=== PATIENT | male | born 1950 | race Caucasian/White ===

== ENCOUNTER 2018-03-11 06:35 | Day surgery (SDC) | payer MEDICARE, OTHER, SELFPAY ==
[2018-03-11] VITALS (8 sets, daily range): BP systolic 106–116; BP diastolic 72–81; PULSE 68–92; RESP 11–18; TEMP 36.4–36.6; O2SAT 83–100; BMI 25.4
--- NOTE | 2018-03-11 | PATH_ITS ---
[facility] Accession Number: [id number] . 01 Material submitted: . BX GE JUNCTION . 02 Diagnosis: Gastroesophageal Junction, Biopsy: Squamocolumnar junctional mucosa with ulcer. Negative for specialized intestinal metaplasia on alcian blue stain. Negative for fungal organisms on PAS stain. Negative for dysplasia or malignancy. V/03/13/2018 . 02 Electronically signed: . Diony Hunter MD, PhD, Pathologist NPI- [id number] . 01 Gross description: . Received one formalin-filled container labeled with the patient's name and labeled GE junction are multiple less than 0.1 to 0.3 cm portions of tissue. Entirely submitted in one cassette. ([facility] [place] [place]:[id number]) /[facility] . 02 Microscopic: . An alcian blue/PAS stain is performed to evaluate for specialized intestinal metaplasia and is negative for goblet cells. A control stain shows appropriate reactivity. There is no evidence of fungal organisms on PAS stain. . 02 Pathologist provided ICD-10: K20.9 . 02 CPT . 968919, [id number] Performed at: 01 [facility] [address], [place], [place] [id number] MD Hardeep Nuñez MD Phone: [phone] Performed at: 02 [facility] [address] [place], [place] [id number] MD Jonatan Vieyra MD Phone: [phone]
--- NOTE | 2018-03-11 08:05 | PM.HP.1 ---
History of Present Illness Date Patient Seen: 03/11/18 Time Patient Seen: 07:50 Chief complaint: EGD [id number] Narrative: Patient is a gentleman with dysphagia of solids here for an EGD. He has chronic reflux disease. Patient History Medical History Dysphagia (Acute) GERD (gastroesophageal reflux disease) (Chronic) Blindness of left eye (Chronic) Depression (Chronic) Elevated cholesterol (Chronic) Surgical History History of enucleation of left eyeball (Resolved) History of vasectomy (Resolved) Family & Social History Family History: Reviewed 03/11/18 by Ricardo Walsh MD Tobacco & Substance use: Smoking Status Never smoker Meds Home Medications Medication Instructions Recorded Confirmed Type citalopram 40 mg PO DAILY 02/05/18 03/11/18 History omeprazole 20 mg capsule,delayed 20 mg PO DAILY 02/05/18 03/11/18 History release atorvastatin 10 mg PO DAILY 03/11/18 03/11/18 History Allergies Allergy/AdvReac Type Severity Reaction Status Date / Time No Known Drug Allergies Allergy Verified 03/11/18 06:58 Review of Systems Review of Systems All systems reviewed & are unremarkable except as noted in HPI and below Exam Vital Signs (past 8 hours): - 03/11/18 07:01 Temperature 97.8 F Pulse Rate 78 Respiratory Rate 18 Blood Pressure 114/72 Pulse Oximetry 97 Oxygen Delivery Method Room Air Narrative Exam Narrative: Operative no apparent distress. Obese. Lungs are clear to auscultation without rales or rhonchi. Heart regular rate and rhythm without murmur gallop. Abdomen is soft nontender without mass patient is alert and oriented x3. Assessment & Plan Plan: Assessment/Plan Narrative: Will proceed to EGD and possible dilatation. I have discussed the procedure with him. Risks of bleeding and perforation discussed. He appears to understand wishes to proceed
--- NOTE | 2018-03-11 08:07 | PM.PREOP ---
Pre-operative Note Interval Note Pre-op Check: Yes History & Physical exam performed today by Physician Changes: No ASA Class (for procedural sedation): II
[2018-03-11] MEDS: MIDAZOLAM 5 MG/5 ML VIAL IV (08:16)
[2018-03-11] MEDS: fentaNYL 250 MCG/5 ML INJ IV (08:18)
[2018-03-11] MEDS: LIDOCAINE 4% SOLN 50 ML 20 ML TOP (08:22)
[2018-03-11] MEDS: TETRACAINE/BENZOCAINE/BUTAMBEN (CETACAINE) BOTTLE 1 SPRAY TOP (08:24)
--- NOTE | 2018-03-11 08:35 | PM.OP.ENDO ---
Operative Date/Time/Diagnoses Date of procedure: 03/11/18 Time of procedure: 08:35 Pre-op diagnosis: Dysphagia Post-op diagnosis: same (Schatzki ring. Inflammation with healing ulceration at the GE junction.) Procedure & Clinicians Study performed: EGD with cold biopsy and balloon dilatation to 15 mm diameter Same procedure as scheduled: Yes Indications: Dysphagia Surgeon: Ricardo Walsh Procedure Notes SCOAP/Timeout: Performed Procedure in detail: The patient had topical anesthetic applied to oropharynx. She was placed in left lateral decubitus position and underwent IV sedation directed by the surgeon consisting of fentanyl and Versed. A bite block was inserted and the scope was advanced through it into the esophagus. The esophagus was unremarkable. GE junction was noted at 38 cm from the incisors. There was marked inflammation and an obvious stricture/Schatzki ring with scarring at the GE junction. There was a 3 cm hiatal hernia. The stomach insufflated well. There were no lesions seen in the body, antrum or at the incisura. The pyloric channel was [patent]. The duodenum was unremarkable to the 4th part. The scope was brought back into the stomach and retroflexed. The proximal stomach[was normal in appearance except for the presence of the hiatal hernia seen well from below]. The scope was straightened and brought out through the esophagus again. Multiple biopsies were taken of the area of the distal esophagus. A balloon dilator was passed through the scope. The area of stricture was larger than 12 mm but at 15 mm diameter we dilated this stricture. The scope was removed and the patient tolerated the procedure well. 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
[2018-03-11] MEDS: SODIUM CHLORIDE 0.9% 1,000 ML 100 ML IV (08:47)
--- NOTE | 2018-03-11 08:55 | SUR.PREOP ---
Margaret grossman started iv.
--- NOTE | 2018-03-11 08:56 | SUR.PHASEI ---
Patient tolerates po water with HOB at 90 degrees.
== END 2018-03-11 09:40 | disposition home or self-care (01) ==
PROVIDERS: Visit Provider Specialist
PROC: 0DJ08ZZ Inspection of Upper Intestinal Tract, Via Natural or Artificial Opening Endoscopic (ICD-10-PCS; CPT 43235; principal; 2018-03-11 07:45)
DX: K20.9 Esophagitis, unspecified (principal); K22.2 Esophageal obstruction; K44.9 Diaphragmatic hernia without obstruction or gangrene; K22.70 Barrett's esophagus without dysplasia; K21.9 Gastro-esophageal reflux disease without esophagitis; E78.5 Hyperlipidemia, unspecified; E66.9 Obesity, unspecified
CPT/HCPCS: 43249; 43239; 88305; 88313; 99152; J2250; J3010

== ENCOUNTER 2018-06-17 06:43 | Day surgery (SDC) | payer MEDICARE, OTHER, SELFPAY ==
--- NOTE | 2018-06-17 | PATH_ITS ---
[facility] Accession Number: [id number] . 01 Material submitted: . ANTRUM BIOPSIES . 02 Diagnosis: Stomach, Antrum, Biopsies: Antral mucosa with focal reactive epithelial changes and changes suggestive of acute erosive gastritis. Negative for Helicobacter by immunohistochemistry. Negative for intestinal metaplasia. Negative for dysplasia and malignancy. V/06/19/2018 . 02 Electronically signed: . Sonam Batista MD, Pathologist NPI- [id number] . 01 Gross description: . Received one formalin-filled container labeled with the patient's name and labeled antrum are two 0.2 to 0.3 cm portions of tissue. Entirely submitted in one cassette. ([facility] [place]:[id number]) /[facility] . 02 Microscopic: . An immunohistochemical stain was performed in order to evaluate for Helicobacter organisms and is negative. The control stain showed appropriate reactivity. Additional deeper levels were examined. . * This test was developed and its performance characteristics determined by [facility]. It has not been cleared or approved by the U.S. Food and Drug Administration. The FDA has determined that such clearance or approval is not necessary. This test is used for clinical purposes. It should not be regarded as investigational or for research. . 02 Pathologist provided ICD-10: R10.9 . 02 CPT . 572511, [id number] Performed at: 01 [facility] [address] [facility], [place], [place] [id number] MD Hardeep Nuñez MD Phone: [phone] Performed at: 02 [facility] [address] [place], [place] [id number] MD Sonam Batista MD Phone: [phone]
[2018-06-17 07:06] VITALS: BP 115/73; PULSE 70; RESP 16; TEMP 36.5; O2SAT 97; BMI 26.1
[2018-06-17] MEDS: SODIUM CHLORIDE 0.9% 1,000 ML 200 ML IV (07:45)
[2018-06-17] MEDS: LIDOCAINE 4% SOLN 50 ML 20 ML TOP (08:30)
--- NOTE | 2018-06-17 08:31 | PM.HP.1 ---
History of Present Illness Date Patient Seen: 06/17/18 Time Patient Seen: 08:31 Chief complaint: egd [id number] Narrative: Patient is a gentleman who had an esophageal ulcer and stricture. He has improvement in swallowing but still has a little bit of dysphagia. He is brought back for repeat EGD to make sure the ulcer is healed and to see if he needs redilated Patient History Medical History Dysphagia (Acute) GERD (gastroesophageal reflux disease) (Chronic) Blindness of left eye (Chronic) Depression (Chronic) Elevated cholesterol (Chronic) Surgical History History of enucleation of left eyeball (Resolved) History of vasectomy (Resolved) Family & Social History Family History: Reviewed 06/17/18 by Ricardo Walsh MD Social History: household members spouse Tobacco & Substance use: Smoking Status Never smoker Meds Home Medications Medication Instructions Recorded Confirmed Type citalopram 40 mg PO DAILY 02/05/18 06/17/18 History atorvastatin 10 mg PO DAILY 03/11/18 06/17/18 History omeprazole 20 mg PO BID 06/17/18 06/17/18 History Allergies Allergy/AdvReac Type Severity Reaction Status Date / Time No Known Drug Allergies Allergy Verified 06/17/18 07:07 Exam Vital Signs (past 8 hours): - 06/17/18 07:06 Temperature 97.7 F Pulse Rate 70 Respiratory Rate 16 Blood Pressure 115/73 Pulse Oximetry 97 Oxygen Delivery Method Room Air Narrative Exam Narrative: Operative obese male in no apparent distress. Lungs are clear to auscultation. No rales or rhonchi heart regular rate and rhythm no murmur or gallop abdomen soft protuberant nontender without mass patient is alert and oriented x3 Assessment & Plan Plan: Assessment/Plan Narrative: Patient for an EGD. I have discussed risks of bleeding and perforation with him. He appears to understand wishes to proceed. Desires a 90 day supply of medication with each prescription due to problems he has getting it filled.
--- NOTE | 2018-06-17 08:33 | PM.PREOP ---
Pre-operative Note Interval Note Pre-op Check: Yes History & Physical exam performed today by Physician Changes: No ASA Class (for procedural sedation): II
[2018-06-17] MEDS: TETRACAINE/BENZOCAINE/BUTAMBEN (CETACAINE) BOTTLE 1 SPRAY TOP (08:40)
[2018-06-17] MEDS: fentaNYL 250 MCG/5 ML INJ IV (08:53)
[2018-06-17] MEDS: MIDAZOLAM 5 MG/5 ML VIAL IV (08:54)
[2018-06-17 09:00] VITALS: BP 108/75; PULSE 72; RESP 20; TEMP 36.6; O2SAT 97
--- NOTE | 2018-06-17 09:03 | PM.OP.ENDO ---
Operative Date/Time/Diagnoses Date of procedure: 06/17/18 Time of procedure: 09:03 Pre-op diagnosis: Esophageal ulcer with stricture history of Post-op diagnosis: same (Ulcer has healed. Schatzki ring. Large hiatal hernia. Gastritis.) Procedure & Clinicians Study performed: EGD with cold biopsy Same procedure as scheduled: Yes Indications: Continued dysphagia. Desire to confirm healing of ulcer. Surgeon: Ricardo Walsh Procedure Notes SCOAP/Timeout: Performed Procedure in detail: The patient had topical anesthetic applied to oropharynx. She was placed in left lateral decubitus position and underwent IV sedation directed by the surgeon consisting of fentanyl and Versed. A bite block was inserted and the scope was advanced through it into the esophagus. The esophagus was unremarkable until I reached the distal esophagus. There was a sharp turn into what appeared to be a dilated shafts washburn ring followed by a 2nd quite large ring and hiatal hernia. The mucosa from the hiatal hernia actually impinged on the lumen of the esophagus in part. There was scarring were apparently the ulcer had been. The 2 rings appeared to be fixed but were widely open. The stomach insufflated well. There were no lesions seen in the body, or at the incisura. There was inflammation however the antrum. The pyloric channel was widely patent and the duodenum was unremarkable of 4th part. The scope was brought back into the stomach and retroflexed. The proximal stomach had a few gastric fundic polyps. The hiatal hernia could be seen from below.. The scope was straightened and brought out through the esophagus again. The hernia measured about 5-6 cm. There did not appear to be a large amount of stomach in it however. No other lesions were seen. The scope was removed and the patient tolerated the procedure well. Scope withdrawal time: Not applicable Sedation minutes: 11 Findings: gastritis (Principal leave the gastric antrum), hiatal hernia, stricture (Widely patent Schatzki ring) and other findings Specimen(s): other (Antral biopsies) Complications: none Recommendations: Continue medication(s) Plan for aftercare: Follow-up with primary care physician's. follow-up with me when dysphagia worsens Disposition: PACU
[2018-06-17 09:05] VITALS: BP 106/75; PULSE 73; RESP 13; TEMP 36.5; O2SAT 97
[2018-06-17 09:10] VITALS: BP 120/80; PULSE 90; RESP 14; TEMP 36.4; O2SAT 98
[2018-06-17 09:13] VITALS: BP 110/77; PULSE 90; RESP 14; TEMP 36.4; O2SAT 94
== END 2018-06-17 09:25 | disposition home or self-care (01) ==
PROVIDERS: PCP Family Medicine; Visit Provider Specialist
PROC: 0DJ08ZZ Inspection of Upper Intestinal Tract, Via Natural or Artificial Opening Endoscopic (ICD-10-PCS; CPT 43235; principal; 2018-06-17 07:45)
DX: K22.2 Esophageal obstruction (principal); K29.70 Gastritis, unspecified, without bleeding; K44.9 Diaphragmatic hernia without obstruction or gangrene; R13.10 Dysphagia, unspecified; E78.00 Pure hypercholesterolemia, unspecified; F33.41 Major depressive disorder, recurrent, in partial remission
CPT/HCPCS: 43239; 88305; 88342; 99152; J2250; J3010

== ENCOUNTER → 2019-09-23 09:43 | Outpatient (CLI) | payer MEDICARE, OTHER, SELFPAY ==
--- NOTE | 2019-09-23 | DI.US.S_ITS ---
PROCEDURE: US ABDOMEN COMPLETE INDICATIONS: NONALCOHOLIC STEATOHEPATITIS (GRIMM) TECHNIQUE: Real-time scanning was performed of the abdominal and retroperitoneal organs, with image documentation. COMPARISON: None. FINDINGS: Liver: Liver is normal in size and homogeneous in echotexture, mildly increased in echotexture consistent with mild hepatic steatosis. Gallbladder: The gallbladder appears normal except for presence of layering calculi, small in size approximately 5-6 mm in diameter. Biliary ducts: Intrahepatic bile ducts are non-dilated. Extrahepatic bile duct caliber measures 4.0 mm. Normal is 6-7 mm or less in diameter, or 10 mm or less post-cholecystectomy. Pancreas: Visualized portions of the pancreas are sonographically normal. Spleen: Spleen is normal in size and homogeneous in echotexture. Kidneys: Kidneys are normal in size and echotexture. Right kidney measures 10.2 cm long; left kidney measures 11.1 cm long. No hydronephrosis or nephrolithiasis. No solid masses. There is a 3.2 cm maximal dimension left renal cortical cyst. Aorta: Visualized aorta is normal in caliber at less than 3 cm. Iliacs: Proximal common iliac arteries are normal in caliber at less than 2.5 cm. IVC: Intrahepatic inferior vena cava is patent. Miscellaneous: No free abdominal fluid. IMPRESSION: Gallstones layering within the gallbladder lumen, without evidence of biliary obstruction or acute cholecystitis. Mild fatty infiltration within the liver. No focal liver lesion found. Dictated by: José Miguel Marti M.D. on 09/23/2019 at 12:39 Approved by: José Miguel Marti M.D. on 09/23/2019 at 12:42
== END ==
PROVIDERS: PCP Family Medicine; Referring Provider Family Medicine; Visit Provider Family Medicine
DX: K75.81 Nonalcoholic steatohepatitis (NASH) (principal); K80.20 Calculus of gallbladder without cholecystitis without obstruction
CPT/HCPCS: 76700

== ENCOUNTER → 2023-12-04 13:34 | Outpatient (CLI) | payer MEDICARE, SELFPAY ==
--- NOTE | 2023-12-04 13:37 | DI.RAD.S_ITS ---
PROCEDURE: XR LUMBAR SPINE 2-3V INDICATIONS: Ghulam Carmona TECHNIQUE: 3 views of the lumbar spine were acquired. COMPARISON: None. FINDINGS: Bones: 5 [id number] vertebrae are present. Mild dextrocurvature of the lumbar spine. Minimal retrolisthesis of L1 on L2. Minimal anterolisthesis of L3 on L4. There is multilevel facet arthropathy, worse at L4-5 and L5-S1. Mild multilevel disc height loss with degenerative endplate changes and spurring is present. This is most severe at L5-S1. No vertebral body compression fractures. No suspicious bony lesions. Soft tissues: Overlying bowel gas pattern is normal. No suspicious soft tissue calcifications. Atherosclerotic vascular calcifications. IMPRESSION: Multilevel degenerative changes of the lumbar spine. Dictated by: Eddie Andrews M.D. on 12/04/2023 at 15:39 Approved by: Eddie Andrews M.D. on 12/04/2023 at 15:40
== END ==
PROVIDERS: PCP Family Medicine; Referring Provider Chiropractor; Visit Provider Chiropractor
DX: M47.816 Spondylosis without myelopathy or radiculopathy, lumbar region (principal); M47.817 Spondylosis without myelopathy or radiculopathy, lumbosacral region; M54.50 Low back pain, unspecified
CPT/HCPCS: 72100

== ENCOUNTER 2024-07-10 10:45 | Outpatient (RCR) | payer MEDICARE, SELFPAY ==
--- NOTE | 2024-05-29 15:58 | PT.OIE ---
Current Diagnoses Other chronic pain (05/29/24) Stiffness of left hip, not elsewhere classified (05/29/24) Low back pain, unspecified (05/29/24) Other abnormalities of gait and mobility (05/29/24) Other lack of coordination (05/29/24) Other symptoms and signs involving the musculoskeletal system (05/29/24) Weakness (05/29/24) Past Medical History (Last Reviewed 03/22/22 @ 12:37 by ADONIS Berry) Blindness of left eye Depression Dysphagia Elevated cholesterol GERD (gastroesophageal reflux disease) Past Surgical History (Last Reviewed 03/22/22 @ 12:37 by ADONIS Berry) History of enucleation of left eyeball History of vasectomy Visit Care Team Role Provider Type Sunday Garcia MD Attending Provider Physician Family Provider Primary Care Provider Referring Provider Specialty: Family Practice Address: [address] [place] [address], [facility] Email: [email or web address] Initial Evaluation PT-OP-A Visit Information Start: 05/28/24 17:03 Freq: Status: Active Protocol: Document 05/29/24 11:25 NM (Rec: 05/29/24 12:27 NM [id number]) Out-Patient Physical Therapy Visit Information Visit Information Visit Type Initial Evaluation Visit Note KX after 19 visits Visit Start Time 11:30 Visit Stop Time 12:15 Visit Number 1 Evaluation Information Evaluation Date 05/29/24 Precautions Precautions L eye removed, fall risk PT-OP-B Current Condition Start: 05/28/24 17:03 Freq: Status: Active Protocol: Document 05/29/24 11:25 NM (Rec: 05/29/24 12:27 NM [id number]) Current Condition History of Current Condition Current Complaints limited hip mobility, balance, getting History of Current Condition Pt presents with back pain and L hip pain, in addition to gait and balance abnormalities . He has had back pain for 15 years, does not recall any specific ROMÁN. 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 He also has L hip pain whihch began 3-4 months ago following a fall. Pt fell when jumping over a small wall; states that he did not follow up with PCP or xrays. Still has intermittent pain but reports no pain with walking. Went to chiropractor following fall which has helped. Has been going to chiropractor for years to help with back. Chiro told pt that RLE is shorter, has wedge in R shoe 1/2 which is causing hip pain and reports that has helped pain. Pt has hx of several falls. He reports that he feels off balance with transfers, being on boat, and turning- states has to catch himself. He has stairs in house (split level), missing rail on last flight going up ( R going up- not a real rail). No dizziness or lightheadedness, just unable to catch self once he starts to fall. Reports difficulty with transfers, strength, balance, donning/doffing L shoe/sock. Has hx of sciatic pain but not currently, last episode was 8 years ago; back is just more achy now especially after performing strenuous activities or twisting such as to work on his boat. Prior Treatments and Tests November 2024 lumbar spine x ray- Impression: multilevel degenerative changes of lumbar spine (mild dextrocurvature, minimal retrolisthesis of L1 on L2, minimal anterolisthesis on L3 on L4, multilevel facet arthropathy worse at L4-5 and L5-S1) Treatment Goals Patient/Caregiver Goals how to improve BLE strength and have fewer falls Current Functional Impairments (Reported) Functional Limitations- Mobility/Gait walks every day w/ do mi- unsteady Functional Limitations- Work/School reading, watching videos Functional Limitations- Recreation/ works on boat, has trouble Hobbies with twisting gym a few weeks every month, has pool membership PT-OP-C Subjective Start: 05/28/24 17:03 Freq: Status: Active Protocol: Document 05/29/24 11:25 NM (Rec: 05/29/24 12:27 NM [id number]) OP-PT Subjective Patient Comments Patient Comments Pt consents to participate in evaluation Patient Questionnaires Lower Extremity Functional Scale LEFS Score 52/80 Oswestry Low Back Index Oswestry Score 16/100 (16% impaired) Other Questionnaire Name and Score Falls Efficacy Scale: 38/64 OP-PT Pain Assessment Location L hip Pain Location Details lateral hip Scale Used Numeric (0 - 10) Description Aching,Dull,Sharp Frequency Intermittent Pain Aggravating Factors Position Other Pain Aggravating Factors hip ER with leg crossed back Pain Location Details middle Intensity 3 Scale Used Numeric (0 - 10) Description Aching,Dull Description- Other best: 1 Frequency Occasional Variations/Patterns worse am after strenuous Pain Aggravating Factors ADL's,Activity,Standing, Bending Other Pain Aggravating Factors twisting Pain Alleviating Factors Medication PT-OP-D Balance Start: 05/28/24 17:03 Freq: Status: Active Protocol: Document 05/29/24 11:25 NM (Rec: 05/29/24 12:27 NM [id number]) Balance Tests Prieto Balance Test Prieto Balance Test Score 46/56 mCTSIB mCTSIB Position 1 stable, eyes open 30 sec mCTSIB Position 2 stable, eyes closed 25 sec mCTSIB Position 3 unstable, eyes open 30 sec w/ sway mCTSIB Position 4 unstable, eyes closed 10 sec w / inc sway PT-OP-E Functional Tests Start: 05/28/24 17:03 Freq: Status: Active Protocol: Document 05/29/24 11:25 NM (Rec: 05/29/24 12:27 NM [id number]) Functional Tests 30 Second Sit to Stand Test Score 14 Comments from chair; fatigues; dec control Dynamic Gait Index (DGI) Score 18/24 Five Times Sit to Stand Test Score 9 Comments from chair; poor ecc control PT-OP-F Manual Assessment Start: 05/28/24 17:03 Freq: Status: Active Protocol: Document 05/29/24 11:25 NM (Rec: 05/29/24 12:27 NM [id number]) Manual Assessments Soft Tissue Assessment Soft Tissue Mobility Assessment Tightness of hip ER and hip flexors, hamstrings Joint Mobility Assessment Joint Mobility Assessment Decreased L hip mobility AROM; will continue to assess in future sessions PT-OP-G Mobility & Gait Start: 05/28/24 17:03 Freq: Status: Active Protocol: Document 05/29/24 11:25 NM (Rec: 05/29/24 12:27 NM [id number]) OP Gait Assessment Gait Distance (Feet) 200 Factors Limiting Gait Function Factors Limiting Gait Function Decreased Strength,Poor Balance Comments Gait Comments Increased sway with L turn, decreased trunk stability and wider based gait PT-OP-H Neuro Start: 05/28/24 17:03 Freq: Status: Active Protocol: Document 05/29/24 11:25 NM (Rec: 05/29/24 12:27 NM [id number]) Deep Tendon Reflex & Clonus Assessment Deep Tendon Reflex Right Patellar Deep Tendon Reflex 1+ Diminished Left Patellar Deep Tendon Reflex 2+ Normal PT-OP-J Posture/Palpation/Skin Start: 05/28/24 17:03 Freq: Status: Active Protocol: Document 05/29/24 11:25 NM (Rec: 05/29/24 12:27 NM [id number]) Palpation Assessment Location L hip Palpation Details mild tenderness over L hip posterior to greater trochanter back Palpation Details No tenderness to palpation along midline; increased soft tissue restrictions of paraspinals especially on R side small curve at thoracic and lumbar spines R PT-OP-K Range of Motion Start: 05/28/24 17:03 Freq: Status: Active Protocol: Document 05/29/24 11:25 NM (Rec: 05/29/24 12:27 NM [id number]) Lumbar Spine Range of Motion Lumbar Spine Active Percentage Flexion 50 Extension 50 Rotation Left 100 Rotation Right 100 Lateral Flexion Left 75 Lateral Flexion Right 50 Comments pain with R LF w/ L hip; B rot Hip Goniometric Range of Motion Hip right Internal Rotation 20 External Rotation 35 left Internal Rotation 25 External Rotation 25 Comments IR PT-OP-L Special Tests Start: 05/28/24 17:03 Freq: Status: Active Protocol: Document 05/29/24 11:25 NM (Rec: 05/29/24 12:27 NM [id number]) Special Tests Lumbar Spine Special Tests Brandon/quadrant Test Results + Comments hips PT-OP-M Strength Start: 05/28/24 17:03 Freq: Status: Active Protocol: Document 05/29/24 11:25 NM (Rec: 05/29/24 12:27 NM [id number]) Trunk Strength Trunk Manual Muscle Testing Flexion 3+ Fair+ Extension 3+ Fair+ Rotation Left 4 Good Rotation Right 4 Good Lateral Flexion Left 4 Good Lateral Flexion Right 4 Good Comments challenging to maintain balance Hip Strength Hip Manual Muscle Testing Right Flexion (L2) 4 Good Extension (S1) 4- Good- Abduction 3+ Fair+ Adduction 4- Good- External Rotation 3+ Fair+ Internal Rotation 3+ Fair+ Left Flexion (L2) 4 Good Extension (S1) 3+ Fair+ Abduction 3+ Fair+ Adduction 4- Good- External Rotation 3+ Fair+ Internal Rotation 3+ Fair+ Knee Strength Knee Manual Muscle Testing Right Flexion (S2) 4- Good- Extension (L3) 4- Good- Left Flexion (S2) 4- Good- Extension (L3) 4- Good- PT-OP-T Assessment and Plan Start: 05/28/24 17:03 Freq: Status: Active Protocol: Document 05/29/24 11:25 NM (Rec: 05/29/24 12:27 NM [id number]) Physical Therapy Assessment Rehab Potential Rehabilitation Potential Good Evaluation Complexity Number of Personal Factors/Comorbidities 3 or More Number of Body Systems Impaired 3 Clinical Presentation at Evaluation Stable Impairments Impairments Activity Tolerance,Balance, Functional Activities, Functional Mobility,Gait,Pain, Posture,ROM,Sensation,Soft Tissue Mobility,Strength, Transfers Other Concerns Fall Risk increased Age Related Concerns PMH: back pain, depression, left eye removed in 1957 Goals Four Impairment 30 sec STS = 14, below age- gender norms [employer] Goal (LTG) Pt will be able to perform 30 sec STS from standard chair without BUE support for age- gender norm (17) in order to demonstrate increased BLE strength and postural support for improved transfers LTG Duration 10 weeks Three Impairment DGI 18/24, Prieto 46/56 Short Term Goal (STG) Pt will be educated on at least 3 fall risk strategies to decrease frequency of falls at home STG Duration 3 weeks [employer] Goal (LTG) Pt will improve DGI score >19/ 24 (WFL) in order to demonstrate lower fall risk during dynamic tasks like working on boat LTG Duration 10 weeks Two Impairment trunk and hip weakness leading to decreased balance, transfers [employer] Developer Goal (LTG) Pt will improve trunk and L hip strength to at least 4/5 globally in order to demonstrate increased strength for gait, balance, and transfers LTG Duration 10 weeks One Impairment not performing HEP [employer] Goal (LTG) Pt will report compliance with HEP at least 3x/wk in order to maximize progression with PT and promote transition to maintenance program upon discharge LTG Duration 10 weeks Assessment Summary Assessment Pt is a 73 y.o. presenting with chronic back pain, L hip pain, and balance abnormalities. Pt is most concerned about his balance. He has had several falls and near falls, including most recent fall 3-4 months ago where pt injured L hip. He has increased risk of falls in static and dynamic instances per Prieto and DGI scores. Pt has difficulty with transfers; he fatigues quickly and his 30 sec STS score is below age- gender norms while his 5x STS is below age-related norms. His BLE and trunk strength are both limited in addition to decreased trunk AROM, which also likely influences back pain symptoms. Pt has had imaging revealing multilevel degeneration and scoliosis; however, he is pain is variable and mostly related to activity. PT educated pt on exam findings and plan of care . Pt would benefit from skilled PT for progressive strengthening and balance training in order to reduce fall risk, promote independence, and improve ability to participate in recreational activities. Physical Therapy Plan Frequency and Duration Frequency of Treatment 2x/Week Duration of treatment (weeks) 10 Plan of Care Start Date 05/29/24 Plan of Care End Date 08/07/23 Therapeutic Interventions Therapeutic Interventions Balance Training,Gait Training ,Home Exercise Program,Joint Mobilizations,Manual Therapy, Neuromuscular Re-education, Orthotic/Prosthetic Management ,Patient/Caregiver Education, Self-Care/Home Management, Sensory Integration,Soft Tissue Mobilization,Taping, Therapeutic Activities, Therapeutic Exercises Modalities Cold Pack/Ice Massage,Electric Stimulation,Hot Packs, Ultrasound Other Therapeutic Interventions grade I-II lumbar mobilizations, no traction Next Visit Focus/Plan Next Note Type Treatment Note Next Visit Plan Establish HEP Promote BLE strength and endurance: STS, LAQ, leg press , hip abduction, heel raises, toe raises, step ups Improve TS and LS mobility and strength: carries, squats, picking up objects Balance sherri dynamic and fall risk reduction
--- NOTE | 2024-06-02 12:56 | PT.OTN ---
Current Diagnoses Other chronic pain (06/02/24) Stiffness of left hip, not elsewhere classified (06/02/24) Low back pain, unspecified (06/02/24) Other abnormalities of gait and mobility (06/02/24) Other lack of coordination (06/02/24) Other symptoms and signs involving the musculoskeletal system (06/02/24) Weakness (06/02/24) Physical Therapy Treatment Note PT-OP-A Visit Information Start: 05/28/24 17:03 Freq: Status: Active Protocol: Document 06/02/24 11:28 NM (Rec: 06/02/24 12:24 NM [id number]) Out-Patient Physical Therapy Visit Information Visit Information Visit Type Treatment Note Visit Note KX after 19 visits Visit Start Time 11:30 Visit Stop Time 12:12 Visit Number 2 Evaluation Information Evaluation Date 05/29/24 Precautions Precautions L eye removed, fall risk PT-OP-B Current Condition Start: 05/28/24 17:03 Freq: Status: Active Protocol: Document 05/29/24 11:25 NM (Rec: 05/29/24 12:27 NM [id number]) Current Condition History of Current Condition Current Complaints limited hip mobility, balance, getting History of Current Condition Pt presents with back pain and L hip pain, in addition to gait and balance abnormalities . He has had back pain for 15 years, does not recall any specific ROMÁN. 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 He also has L hip pain whihch began 3-4 months ago following a fall. Pt fell when jumping over a small wall; states that he did not follow up with PCP or xrays. Still has intermittent pain but reports no pain with walking. Went to chiropractor following fall which has helped. Has been going to chiropractor for years to help with back. Chiro told pt that RLE is shorter, has wedge in R shoe 1/2 which is causing hip pain and reports that has helped pain. Pt has hx of several falls. He reports that he feels off balance with transfers, being on boat, and turning- states has to catch himself. He has stairs in house (split level), missing rail on last flight going up ( R going up- not a real rail). No dizziness or lightheadedness, just unable to catch self once he starts to fall. Reports difficulty with transfers, strength, balance, donning/doffing L shoe/sock. Has hx of sciatic pain but not currently, last episode was 8 years ago; back is just more achy now especially after performing strenuous activities or twisting such as to work on his boat. Prior Treatments and Tests November 2024 lumbar spine x ray- Impression: multilevel degenerative changes of lumbar spine (mild dextrocurvature, minimal retrolisthesis of L1 on L2, minimal anterolisthesis on L3 on L4, multilevel facet arthropathy worse at L4-5 and L5-S1) Treatment Goals Patient/Caregiver Goals how to improve BLE strength and have fewer falls Current Functional Impairments (Reported) Functional Limitations- Mobility/Gait walks every day w/ do mi- unsteady Functional Limitations- Work/School reading, watching videos Functional Limitations- Recreation/ works on boat, has trouble Hobbies with twisting gym a few weeks every month, has pool membership PT-OP-C Subjective Start: 05/28/24 17:03 Freq: Status: Active Protocol: Document 06/02/24 11:28 NM (Rec: 06/02/24 12:24 NM [id number]) OP-PT Subjective Patient Comments Patient Comments Pt reports no pain in low back since last visit. He reports that evaluation was very thorough. No changes since evaluation. He reports that he has caught himself from fall a few times, falling forward, when coming to stand from low couch and then with turning/ stopping. PT-OP-D Balance Start: 05/28/24 17:03 Freq: Status: Active Protocol: Document 05/29/24 11:25 NM (Rec: 05/29/24 12:27 NM [id number]) Balance Tests Prieto Balance Test Prieto Balance Test Score 46/56 mCTSIB mCTSIB Position 1 stable, eyes open 30 sec mCTSIB Position 2 stable, eyes closed 25 sec mCTSIB Position 3 unstable, eyes open 30 sec w/ sway mCTSIB Position 4 unstable, eyes closed 10 sec w / inc sway PT-OP-E Functional Tests Start: 05/28/24 17:03 Freq: Status: Active Protocol: Document 05/29/24 11:25 NM (Rec: 05/29/24 12:27 NM [id number]) Functional Tests 30 Second Sit to Stand Test Score 14 Comments from chair; fatigues; dec control Dynamic Gait Index (DGI) Score 18/24 Five Times Sit to Stand Test Score 9 Comments from chair; poor ecc control PT-OP-F Manual Assessment Start: 05/28/24 17:03 Freq: Status: Active Protocol: Document 05/29/24 11:25 NM (Rec: 05/29/24 12:27 NM [id number]) Manual Assessments Soft Tissue Assessment Soft Tissue Mobility Assessment Tightness of hip ER and hip flexors, hamstrings Joint Mobility Assessment Joint Mobility Assessment Decreased L hip mobility AROM; will continue to assess in future sessions PT-OP-G Mobility & Gait Start: 05/28/24 17:03 Freq: Status: Active Protocol: Document 05/29/24 11:25 NM (Rec: 05/29/24 12:27 NM [id number]) OP Gait Assessment Gait Distance (Feet) 200 Factors Limiting Gait Function Factors Limiting Gait Function Decreased Strength,Poor Balance Comments Gait Comments Increased sway with L turn, decreased trunk stability and wider based gait PT-OP-H Neuro Start: 05/28/24 17:03 Freq: Status: Active Protocol: Document 05/29/24 11:25 NM (Rec: 05/29/24 12:27 NM [id number]) Deep Tendon Reflex & Clonus Assessment Deep Tendon Reflex Right Patellar Deep Tendon Reflex 1+ Diminished Left Patellar Deep Tendon Reflex 2+ Normal PT-OP-J Posture/Palpation/Skin Start: 05/28/24 17:03 Freq: Status: Active Protocol: Document 05/29/24 11:25 NM (Rec: 05/29/24 12:27 NM [id number]) Palpation Assessment Location L hip Palpation Details mild tenderness over L hip posterior to greater trochanter back Palpation Details No tenderness to palpation along midline; increased soft tissue restrictions of paraspinals especially on R side small curve at thoracic and lumbar spines R PT-OP-K Range of Motion Start: 05/28/24 17:03 Freq: Status: Active Protocol: Document 05/29/24 11:25 NM (Rec: 05/29/24 12:27 NM [id number]) Lumbar Spine Range of Motion Lumbar Spine Active Percentage Flexion 50 Extension 50 Rotation Left 100 Rotation Right 100 Lateral Flexion Left 75 Lateral Flexion Right 50 Comments pain with R LF w/ L hip; B rot Hip Goniometric Range of Motion Hip right Internal Rotation 20 External Rotation 35 left Internal Rotation 25 External Rotation 25 Comments IR PT-OP-L Special Tests Start: 05/28/24 17:03 Freq: Status: Active Protocol: Document 05/29/24 11:25 NM (Rec: 05/29/24 12:27 NM [id number]) Special Tests Lumbar Spine Special Tests Brandon/quadrant Test Results + Comments hips PT-OP-M Strength Start: 05/28/24 17:03 Freq: Status: Active Protocol: Document 05/29/24 11:25 NM (Rec: 05/29/24 12:27 NM [id number]) Trunk Strength Trunk Manual Muscle Testing Flexion 3+ Fair+ Extension 3+ Fair+ Rotation Left 4 Good Rotation Right 4 Good Lateral Flexion Left 4 Good Lateral Flexion Right 4 Good Comments challenging to maintain balance Hip Strength Hip Manual Muscle Testing Right Flexion (L2) 4 Good Extension (S1) 4- Good- Abduction 3+ Fair+ Adduction 4- Good- External Rotation 3+ Fair+ Internal Rotation 3+ Fair+ Left Flexion (L2) 4 Good Extension (S1) 3+ Fair+ Abduction 3+ Fair+ Adduction 4- Good- External Rotation 3+ Fair+ Internal Rotation 3+ Fair+ Knee Strength Knee Manual Muscle Testing Right Flexion (S2) 4- Good- Extension (L3) 4- Good- Left Flexion (S2) 4- Good- Extension (L3) 4- Good- PT-OP-Q Treatments Start: 05/28/24 17:03 Freq: Status: Active Protocol: Document 06/02/24 11:28 NM (Rec: 06/02/24 12:24 NM [id number]) Therapeutic Exercises Supine Exercises HS mobilization/nerve glide Side bilateral Equipment Used gait belt assist Reps/Minutes 30 ea Comments limited TKE TrA activation Supine Exercise Name 1. breathing, 2. BKFO, 3. marching (HEP) Side bilateral Reps/Minutes 1.10x2, 2. 10 ea w/ verbal/ tactile cues, 3. 10 ea Comments with cueing for breathwork, coord., control sherri eccentrically Sitting Exercises seated HS stretch Sitting Exercise Name with AP (HEP) Side bilateral Equipment Used with slight fwd trunk lean Reps/Minutes 60 ea Comments cued nuetral foot position LAQ Sitting Exercise Name HEP Side bilateral Resistance AROM > levl 1 band at ankles ( self don) Reps/Minutes 10 w/ 2 hold, 15 w/ band ea Comments feels more in HS even after stretch hip abduction Sitting Exercise Name HEP- 1. glute med isometric, 2 . clams Side bilateral Resistance level 3 band Reps/Minutes 1. 60 hold, 2. 2x10 Therapeutic Activity Therapeutic Activity sit to stand Name with hip hinge Reps/Minutes 8 minutes Comments Education for rationale and set up for position. Cueing for forward scooting in chair, foot positioning and knee positioning to prevent valgus, ant weight shift with arms across chest to avoid UE assist. Improved ascent w/ reps, prn cues for form. Cued primarily for control w/ descent, 20 plinth. CGA initially > close SBA as improved PT-OP-T Assessment and Plan Start: 05/28/24 17:03 Freq: Status: Active Protocol: Document 06/02/24 11:28 NM (Rec: 06/02/24 12:24 NM [id number]) Physical Therapy Assessment Goals Four Impairment 30 sec STS = 14, below age- gender norms Geophysics Teacher Goal (LTG) Pt will be able to perform 30 sec STS from standard chair without BUE support for age- gender norm (17) in order to demonstrate increased BLE strength and postural support for improved transfers LTG Duration 10 weeks Three Impairment DGI 18/24, Prieto 46/56 Short Term Goal (STG) Pt will be educated on at least 3 fall risk strategies to decrease frequency of falls at home STG Duration 3 weeks Fpc Goal (LTG) Pt will improve DGI score >19/ 24 (WFL) in order to demonstrate lower fall risk during dynamic tasks like working on boat LTG Duration 10 weeks Two Impairment trunk and hip weakness leading to decreased balance, transfers Fpc Goal (LTG) Pt will improve trunk and L hip strength to at least 4/5 globally in order to demonstrate increased strength for gait, balance, and transfers LTG Duration 10 weeks One Impairment not performing HEP Geophysics Teacher Goal (LTG) Pt will report compliance with HEP at least 3x/wk in order to maximize progression with PT and promote transition to maintenance program upon discharge LTG Duration 10 weeks Assessment Summary Assessment Pt tolerated session well. No back or hip pain during session. Emphasis on improving STS mechanics and initiating proximal strength to promote better balance and trunk stability. Challenged with performing coordination with core bracing, especially when paired with movement. Improved with tactile and verbal cueing. Pt has increased restrictions of B hamstrings, which limits posture during transfers. Good feedback for hamstring stretching in preparation for STS transfer training and BLE strengthening . Moderate cueing for STS, but improved ascent with less initial sway compared to evaluation last week. Less assist for balance needed as session progresses. Still requires cueing for anterior weight shift and eccentric control. Pt would benefit from skilled PT for progressive strengthening and balance training to decrease fall risk and improve safety during transfers and ADLs. Physical Therapy Plan Frequency and Duration Frequency of Treatment 2x/Week Duration of treatment (weeks) 10 Plan of Care Start Date 05/29/24 Plan of Care End Date 08/07/23 Therapeutic Interventions Therapeutic Interventions Balance Training,Gait Training ,Home Exercise Program,Joint Mobilizations,Manual Therapy, Neuromuscular Re-education, Orthotic/Prosthetic Management ,Patient/Caregiver Education, Self-Care/Home Management, Sensory Integration,Soft Tissue Mobilization,Taping, Therapeutic Activities, Therapeutic Exercises Modalities Cold Pack/Ice Massage,Electric Stimulation,Hot Packs, Ultrasound Other Therapeutic Interventions grade I-II lumbar mobilizations, no traction Next Visit Focus/Plan Next Note Type Treatment Note Next Visit Plan Review HEP. STS training ( reduce ht, add band if needed) . cont with seated and standing core. Progressive BLE strength and balance training (sherri turns and picking up objects) Promote BLE strength and endurance: STS, LAQ, leg press , hip abduction, heel raises, toe raises, step ups Improve TS and LS mobility and strength: carries, squats, picking up objects Balance sherri dynamic and fall risk reduction
--- NOTE | 2024-06-04 12:22 | PT.OTN ---
Current Diagnoses Other chronic pain (06/04/24) Stiffness of left hip, not elsewhere classified (06/04/24) Low back pain, unspecified (06/04/24) Other abnormalities of gait and mobility (06/04/24) Other lack of coordination (06/04/24) Other symptoms and signs involving the musculoskeletal system (06/04/24) Weakness (06/04/24) Physical Therapy Treatment Note PT-OP-A Visit Information Start: 05/28/24 17:03 Freq: Status: Active Protocol: Document 06/04/24 11:36 SP (Rec: 06/04/24 12:30 SP [id number]) Out-Patient Physical Therapy Visit Information Visit Information Visit Type Treatment Note Visit Note KX after 19 visits Visit Start Time 11:36 Visit Stop Time 12:22 Visit Number 3 (09/28 with eval) Number of WATERPROOF BAG SEWER Visits 1 Evaluation Information Evaluation Date 05/29/24 Precautions Precautions L eye removed, fall risk PT-OP-B Current Condition Start: 05/28/24 17:03 Freq: Status: Active Protocol: Document 05/29/24 11:25 NM (Rec: 05/29/24 12:27 NM [id number]) Current Condition History of Current Condition Current Complaints limited hip mobility, balance, getting History of Current Condition Pt presents with back pain and L hip pain, in addition to gait and balance abnormalities . He has had back pain for 15 years, does not recall any specific ROMÁN. 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 He also has L hip pain whihch began 3-4 months ago following a fall. Pt fell when jumping over a small wall; states that he did not follow up with PCP or xrays. Still has intermittent pain but reports no pain with walking. Went to chiropractor following fall which has helped. Has been going to chiropractor for years to help with back. Chiro told pt that RLE is shorter, has wedge in R shoe 1/2 which is causing hip pain and reports that has helped pain. Pt has hx of several falls. He reports that he feels off balance with transfers, being on boat, and turning- states has to catch himself. He has stairs in house (split level), missing rail on last flight going up ( R going up- not a real rail). No dizziness or lightheadedness, just unable to catch self once he starts to fall. Reports difficulty with transfers, strength, balance, donning/doffing L shoe/sock. Has hx of sciatic pain but not currently, last episode was 8 years ago; back is just more achy now especially after performing strenuous activities or twisting such as to work on his boat. Prior Treatments and Tests November 2024 lumbar spine x ray- Impression: multilevel degenerative changes of lumbar spine (mild dextrocurvature, minimal retrolisthesis of L1 on L2, minimal anterolisthesis on L3 on L4, multilevel facet arthropathy worse at L4-5 and L5-S1) Treatment Goals Patient/Caregiver Goals how to improve BLE strength and have fewer falls Current Functional Impairments (Reported) Functional Limitations- Mobility/Gait walks every day w/ do mi- unsteady Functional Limitations- Work/School reading, watching videos Functional Limitations- Recreation/ works on boat, has trouble Hobbies with twisting gym a few weeks every month, has pool membership PT-OP-C Subjective Start: 05/28/24 17:03 Freq: Status: Active Protocol: Document 06/04/24 11:36 SP (Rec: 06/04/24 12:30 SP [id number]) OP-PT Subjective Patient Comments Patient Comments Pt reports little sore inquad after last tx and less balanced today. PT-OP-D Balance Start: 05/28/24 17:03 Freq: Status: Active Protocol: Document 05/29/24 11:25 NM (Rec: 05/29/24 12:27 NM [id number]) Balance Tests Prieto Balance Test Prieto Balance Test Score 46/56 mCTSIB mCTSIB Position 1 stable, eyes open 30 sec mCTSIB Position 2 stable, eyes closed 25 sec mCTSIB Position 3 unstable, eyes open 30 sec w/ sway mCTSIB Position 4 unstable, eyes closed 10 sec w / inc sway PT-OP-E Functional Tests Start: 05/28/24 17:03 Freq: Status: Active Protocol: Document 05/29/24 11:25 NM (Rec: 05/29/24 12:27 NM [id number]) Functional Tests 30 Second Sit to Stand Test Score 14 Comments from chair; fatigues; dec control Dynamic Gait Index (DGI) Score 18/24 Five Times Sit to Stand Test Score 9 Comments from chair; poor ecc control PT-OP-F Manual Assessment Start: 05/28/24 17:03 Freq: Status: Active Protocol: Document 05/29/24 11:25 NM (Rec: 05/29/24 12:27 NM [id number]) Manual Assessments Soft Tissue Assessment Soft Tissue Mobility Assessment Tightness of hip ER and hip flexors, hamstrings Joint Mobility Assessment Joint Mobility Assessment Decreased L hip mobility AROM; will continue to assess in future sessions PT-OP-G Mobility & Gait Start: 05/28/24 17:03 Freq: Status: Active Protocol: Document 05/29/24 11:25 NM (Rec: 05/29/24 12:27 NM [id number]) OP Gait Assessment Gait Distance (Feet) 200 Factors Limiting Gait Function Factors Limiting Gait Function Decreased Strength,Poor Balance Comments Gait Comments Increased sway with L turn, decreased trunk stability and wider based gait PT-OP-H Neuro Start: 05/28/24 17:03 Freq: Status: Active Protocol: Document 05/29/24 11:25 NM (Rec: 05/29/24 12:27 NM [id number]) Deep Tendon Reflex & Clonus Assessment Deep Tendon Reflex Right Patellar Deep Tendon Reflex 1+ Diminished Left Patellar Deep Tendon Reflex 2+ Normal PT-OP-J Posture/Palpation/Skin Start: 05/28/24 17:03 Freq: Status: Active Protocol: Document 05/29/24 11:25 NM (Rec: 05/29/24 12:27 NM [id number]) Palpation Assessment Location L hip Palpation Details mild tenderness over L hip posterior to greater trochanter back Palpation Details No tenderness to palpation along midline; increased soft tissue restrictions of paraspinals especially on R side small curve at thoracic and lumbar spines R PT-OP-K Range of Motion Start: 05/28/24 17:03 Freq: Status: Active Protocol: Document 05/29/24 11:25 NM (Rec: 05/29/24 12:27 NM [id number]) Lumbar Spine Range of Motion Lumbar Spine Active Percentage Flexion 50 Extension 50 Rotation Left 100 Rotation Right 100 Lateral Flexion Left 75 Lateral Flexion Right 50 Comments pain with R LF w/ L hip; B rot Hip Goniometric Range of Motion Hip right Internal Rotation 20 External Rotation 35 left Internal Rotation 25 External Rotation 25 Comments IR PT-OP-L Special Tests Start: 05/28/24 17:03 Freq: Status: Active Protocol: Document 05/29/24 11:25 NM (Rec: 05/29/24 12:27 NM [id number]) Special Tests Lumbar Spine Special Tests Brandon/quadrant Test Results + Comments hips PT-OP-M Strength Start: 05/28/24 17:03 Freq: Status: Active Protocol: Document 05/29/24 11:25 NM (Rec: 05/29/24 12:27 NM [id number]) Trunk Strength Trunk Manual Muscle Testing Flexion 3+ Fair+ Extension 3+ Fair+ Rotation Left 4 Good Rotation Right 4 Good Lateral Flexion Left 4 Good Lateral Flexion Right 4 Good Comments challenging to maintain balance Hip Strength Hip Manual Muscle Testing Right Flexion (L2) 4 Good Extension (S1) 4- Good- Abduction 3+ Fair+ Adduction 4- Good- External Rotation 3+ Fair+ Internal Rotation 3+ Fair+ Left Flexion (L2) 4 Good Extension (S1) 3+ Fair+ Abduction 3+ Fair+ Adduction 4- Good- External Rotation 3+ Fair+ Internal Rotation 3+ Fair+ Knee Strength Knee Manual Muscle Testing Right Flexion (S2) 4- Good- Extension (L3) 4- Good- Left Flexion (S2) 4- Good- Extension (L3) 4- Good- PT-OP-Q Treatments Start: 05/28/24 17:03 Freq: Status: Active Protocol: Document 06/04/24 11:36 SP (Rec: 06/04/24 12:30 SP [id number]) Gym Equipment Shuttle Recovery unilateral squat Details good pa Resistance 37# (1[employer])- next time might add more Reps/Time x15 each LE bilateral squat Details cued not locking knees, slower eccentric control Resistance 75 # (3 navy) Reps/Time x15 reps Therapeutic Exercises Sitting Exercises STS Sitting Exercise Name added to HEP wrote on current HO Resistance Tb #4 dark blue at thighs Equipment Used mesh chair, arms across chest Reps/Minutes 2x10- BID Comments occ cues slower hip hinge descend sit LAQ Sitting Exercise Name HEP Side bilateral Resistance AROM > levl 1 band at ankles ( self don) Reps/Minutes 15 reps x 2 SH w/ band ea Comments feels more in HS even after stretch hip abduction Sitting Exercise Name HEP- 1. glute med isometric, 2 . clams Side bilateral Resistance level 3 band> level 4 Tb dark blue Reps/Minutes 1. 60 hold, 2. 2x10 Comments reports green band easy Therapeutic Activity Therapeutic Activity sit to stand Name with hip hinge Reps/Minutes 10 reps each height Comments Cued primarily hip wiley and for control w/ descent, 20 chair + foam> c hair only, arms across chest. Neuro Re-Education Treatment Balance Activities dynamic walking Details head turns side to side, vertical/down Surface tile hallway Reps/Duration 4 laps total Comments cued taller posture /c rhomboid, increase TALHA, improved stability and able increased pacing stride. Viers L with HT R, improved midline stab with cuing. hurdles Details receiprocal stepping Surface hurdles x2 laps, added foam stones x3 laps fwd Reps/Duration 5 laps total Comments cued taller posture, rhomboid and core fac midline, softer stepping, wt shift into advanced LE, improved stability midline. LOB L x3 initially rail recovery PT-OP-T Assessment and Plan Start: 05/28/24 17:03 Freq: Status: Active Protocol: Document 06/04/24 11:36 SP (Rec: 06/04/24 12:30 SP [id number]) Physical Therapy Assessment Goals Four Impairment 30 sec STS = 14, below age- gender norms Group Home Goal (LTG) Pt will be able to perform 30 sec STS from standard chair without BUE support for age- gender norm (17) in order to demonstrate increased BLE strength and postural support for improved transfers LTG Duration 10 weeks Three Impairment DGI 18/24, Prieto 46/56 Short Term Goal (STG) Pt will be educated on at least 3 fall risk strategies to decrease frequency of falls at home STG Duration 3 weeks Group Home Goal (LTG) Pt will improve DGI score >19/ 24 (WFL) in order to demonstrate lower fall risk during dynamic tasks like working on boat LTG Duration 10 weeks Two Impairment trunk and hip weakness leading to decreased balance, transfers Group Home Goal (LTG) Pt will improve trunk and L hip strength to at least 4/5 globally in order to demonstrate increased strength for gait, balance, and transfers LTG Duration 10 weeks One Impairment not performing HEP Group Home Goal (LTG) Pt will report compliance with HEP at least 3x/wk in order to maximize progression with PT and promote transition to maintenance program upon discharge LTG Duration 10 weeks Assessment Summary Assessment Pt tolerated increased resistance during seated hip abd, reported Level 3 band easy. Wrote STS on his HO for carrover home band around thighs. Improved midline stability during balance activities and dynamic stepping cues for postural corrections for safety stability. Physical Therapy Plan Frequency and Duration Frequency of Treatment 2x/Week Duration of treatment (weeks) 10 Plan of Care Start Date 05/29/24 Plan of Care End Date 08/07/23 Therapeutic Interventions Therapeutic Interventions Balance Training,Gait Training ,Home Exercise Program,Joint Mobilizations,Manual Therapy, Neuromuscular Re-education, Orthotic/Prosthetic Management ,Patient/Caregiver Education, Self-Care/Home Management, Sensory Integration,Soft Tissue Mobilization,Taping, Therapeutic Activities, Therapeutic Exercises Modalities Cold Pack/Ice Massage,Electric Stimulation,Hot Packs, Ultrasound Other Therapeutic Interventions grade I-II lumbar mobilizations, no traction Next Visit Focus/Plan Next Note Type Treatment Note Next Visit Plan Review HEP review needed. NExt tx: add corner balance and EC fwd, bkward walking. POC cont with seated and standing core. Progressive BLE strength and balance training (sherri turns and picking up objects) Promote BLE strength and endurance: STS, LAQ, leg press , hip abduction, heel raises, toe raises, step ups Improve TS and LS mobility and strength: carries, squats, picking up objects Balance sherri dynamic and fall risk reduction
--- NOTE | 2024-06-09 12:20 | PT.OTN ---
Current Diagnoses Other chronic pain (06/09/24) Stiffness of left hip, not elsewhere classified (06/09/24) Low back pain, unspecified (06/09/24) Other abnormalities of gait and mobility (06/09/24) Other lack of coordination (06/09/24) Other symptoms and signs involving the musculoskeletal system (06/09/24) Weakness (06/09/24) Physical Therapy Treatment Note PT-OP-A Visit Information Start: 05/28/24 17:03 Freq: Status: Active Protocol: Document 06/09/24 11:36 SP (Rec: 06/09/24 12:39 SP [id number]) Out-Patient Physical Therapy Visit Information Visit Information Visit Type Treatment Note Visit Note KX after 19 visits Visit Start Time 11:36 Visit Stop Time 12:20 Visit Number 4 (10/29 with eval) Number of OPERATING ROOM AIDE Visits 2 Evaluation Information Evaluation Date 05/29/24 Precautions Precautions L eye removed, fall risk PT-OP-B Current Condition Start: 05/28/24 17:03 Freq: Status: Active Protocol: Document 05/29/24 11:25 NM (Rec: 05/29/24 12:27 NM [id number]) Current Condition History of Current Condition Current Complaints limited hip mobility, balance, getting History of Current Condition Pt presents with back pain and L hip pain, in addition to gait and balance abnormalities . He has had back pain for 15 years, does not recall any specific ROMÁN. 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 He also has L hip pain whihch began 3-4 months ago following a fall. Pt fell when jumping over a small wall; states that he did not follow up with PCP or xrays. Still has intermittent pain but reports no pain with walking. Went to chiropractor following fall which has helped. Has been going to chiropractor for years to help with back. Chiro told pt that RLE is shorter, has wedge in R shoe 1/2 which is causing hip pain and reports that has helped pain. Pt has hx of several falls. He reports that he feels off balance with transfers, being on boat, and turning- states has to catch himself. He has stairs in house (split level), missing rail on last flight going up ( R going up- not a real rail). No dizziness or lightheadedness, just unable to catch self once he starts to fall. Reports difficulty with transfers, strength, balance, donning/doffing L shoe/sock. Has hx of sciatic pain but not currently, last episode was 8 years ago; back is just more achy now especially after performing strenuous activities or twisting such as to work on his boat. Prior Treatments and Tests November 2024 lumbar spine x ray- Impression: multilevel degenerative changes of lumbar spine (mild dextrocurvature, minimal retrolisthesis of L1 on L2, minimal anterolisthesis on L3 on L4, multilevel facet arthropathy worse at L4-5 and L5-S1) Treatment Goals Patient/Caregiver Goals how to improve BLE strength and have fewer falls Current Functional Impairments (Reported) Functional Limitations- Mobility/Gait walks every day w/ do mi- unsteady Functional Limitations- Work/School reading, watching videos Functional Limitations- Recreation/ works on boat, has trouble Hobbies with twisting gym a few weeks every month, has pool membership PT-OP-C Subjective Start: 05/28/24 17:03 Freq: Status: Active Protocol: Document 06/09/24 11:36 SP (Rec: 06/09/24 12:39 SP [id number]) OP-PT Subjective Patient Comments Patient Comments Pt reports had soreness in Laureano quads for about 1.5 days after treatments. PT-OP-D Balance Start: 05/28/24 17:03 Freq: Status: Active Protocol: Document 05/29/24 11:25 NM (Rec: 05/29/24 12:27 NM [id number]) Balance Tests Prieto Balance Test Prieto Balance Test Score 46/56 mCTSIB mCTSIB Position 1 stable, eyes open 30 sec mCTSIB Position 2 stable, eyes closed 25 sec mCTSIB Position 3 unstable, eyes open 30 sec w/ sway mCTSIB Position 4 unstable, eyes closed 10 sec w / inc sway PT-OP-E Functional Tests Start: 05/28/24 17:03 Freq: Status: Active Protocol: Document 05/29/24 11:25 NM (Rec: 05/29/24 12:27 NM [id number]) Functional Tests 30 Second Sit to Stand Test Score 14 Comments from chair; fatigues; dec control Dynamic Gait Index (DGI) Score 18/24 Five Times Sit to Stand Test Score 9 Comments from chair; poor ecc control PT-OP-F Manual Assessment Start: 05/28/24 17:03 Freq: Status: Active Protocol: Document 05/29/24 11:25 NM (Rec: 05/29/24 12:27 NM [id number]) Manual Assessments Soft Tissue Assessment Soft Tissue Mobility Assessment Tightness of hip ER and hip flexors, hamstrings Joint Mobility Assessment Joint Mobility Assessment Decreased L hip mobility AROM; will continue to assess in future sessions PT-OP-G Mobility & Gait Start: 05/28/24 17:03 Freq: Status: Active Protocol: Document 05/29/24 11:25 NM (Rec: 05/29/24 12:27 NM [id number]) OP Gait Assessment Gait Distance (Feet) 200 Factors Limiting Gait Function Factors Limiting Gait Function Decreased Strength,Poor Balance Comments Gait Comments Increased sway with L turn, decreased trunk stability and wider based gait PT-OP-H Neuro Start: 05/28/24 17:03 Freq: Status: Active Protocol: Document 05/29/24 11:25 NM (Rec: 05/29/24 12:27 NM [id number]) Deep Tendon Reflex & Clonus Assessment Deep Tendon Reflex Right Patellar Deep Tendon Reflex 1+ Diminished Left Patellar Deep Tendon Reflex 2+ Normal PT-OP-J Posture/Palpation/Skin Start: 05/28/24 17:03 Freq: Status: Active Protocol: Document 05/29/24 11:25 NM (Rec: 05/29/24 12:27 NM [id number]) Palpation Assessment Location L hip Palpation Details mild tenderness over L hip posterior to greater trochanter back Palpation Details No tenderness to palpation along midline; increased soft tissue restrictions of paraspinals especially on R side small curve at thoracic and lumbar spines R PT-OP-K Range of Motion Start: 05/28/24 17:03 Freq: Status: Active Protocol: Document 05/29/24 11:25 NM (Rec: 05/29/24 12:27 NM [id number]) Lumbar Spine Range of Motion Lumbar Spine Active Percentage Flexion 50 Extension 50 Rotation Left 100 Rotation Right 100 Lateral Flexion Left 75 Lateral Flexion Right 50 Comments pain with R LF w/ L hip; B rot Hip Goniometric Range of Motion Hip right Internal Rotation 20 External Rotation 35 left Internal Rotation 25 External Rotation 25 Comments IR PT-OP-L Special Tests Start: 05/28/24 17:03 Freq: Status: Active Protocol: Document 05/29/24 11:25 NM (Rec: 05/29/24 12:27 NM [id number]) Special Tests Lumbar Spine Special Tests Brandon/quadrant Test Results + Comments hips PT-OP-M Strength Start: 05/28/24 17:03 Freq: Status: Active Protocol: Document 05/29/24 11:25 NM (Rec: 05/29/24 12:27 NM [id number]) Trunk Strength Trunk Manual Muscle Testing Flexion 3+ Fair+ Extension 3+ Fair+ Rotation Left 4 Good Rotation Right 4 Good Lateral Flexion Left 4 Good Lateral Flexion Right 4 Good Comments challenging to maintain balance Hip Strength Hip Manual Muscle Testing Right Flexion (L2) 4 Good Extension (S1) 4- Good- Abduction 3+ Fair+ Adduction 4- Good- External Rotation 3+ Fair+ Internal Rotation 3+ Fair+ Left Flexion (L2) 4 Good Extension (S1) 3+ Fair+ Abduction 3+ Fair+ Adduction 4- Good- External Rotation 3+ Fair+ Internal Rotation 3+ Fair+ Knee Strength Knee Manual Muscle Testing Right Flexion (S2) 4- Good- Extension (L3) 4- Good- Left Flexion (S2) 4- Good- Extension (L3) 4- Good- PT-OP-Q Treatments Start: 05/28/24 17:03 Freq: Status: Active Protocol: Document 06/09/24 11:36 SP (Rec: 06/09/24 12:39 SP [id number]) Gym Equipment Shuttle Recovery unilateral squat Details cued heel drive glut fac Resistance 37# (1navy) (50 1 navy/1 teal next tx) Reps/Time x15 each LE bilateral squat Details cued not locking knees, slower eccentric control Resistance 75 # (3 navy) Reps/Time x15 reps Therapeutic Exercises Supine Exercises Shiva stretch Supine Exercise Name added to HEP /c HO Side bilateral Resistance opp LE bent/foot ontable Reps/Minutes 60 sec Comments good quad> hip flexor stretch- no LB recruitment HS mobilization/nerve glide Side bilateral Equipment Used clasp hand behind thighs today Reps/Minutes 30 ea worth AP Comments improved knee ext L>R TrA activation Supine Exercise Name 1. BKFO, 2. progressed to sequencial marching (HEP) Side bilateral Reps/Minutes 10 ea Comments with cueing for breathwork, coord., control sherri eccentrically Sitting Exercises Fig 4 Stretch Sitting Exercise Name added toHEP /c HO Side bilateral Resistance L>R Reps/Minutes 60 SH, then pt performed taps on opp knee for ROM Comments good feedback stretch seated HS stretch Sitting Exercise Name with AP (HEP) Side bilateral Equipment Used with slight fwd trunk lean Reps/Minutes 60 ea Comments cued nuetral foot position LAQ Sitting Exercise Name HEP Side bilateral Resistance levl 1 band at ankles (self don) Reps/Minutes 15 reps x 2 SH w/ band ea Comments feels more in HS even after stretch hip abduction Sitting Exercise Name HEP- 1. glute med isometric, 2 . clams Side bilateral Resistance level 4 Tb dark blue Reps/Minutes 1. 60 hold, 2. 2x10 Comments reports green band easy Standing Exercises step ups Standing Exercise Name added to HEP /c HO: fwd & lateral Side bilateral Equipment Used 6 step, near rail for support if needed Reps/Minutes 10 each LE each direction Comments cued light moving foot tap step for stabillitiy support PT-OP-T Assessment and Plan Start: 05/28/24 17:03 Freq: Status: Active Protocol: Document 06/09/24 11:36 SP (Rec: 06/09/24 12:39 SP [id number]) Physical Therapy Assessment Goals Four Impairment 30 sec STS = 14, below age- gender norms Career Counselor Goal (LTG) Pt will be able to perform 30 sec STS from standard chair without BUE support for age- gender norm (17) in order to demonstrate increased BLE strength and postural support for improved transfers LTG Duration 10 weeks Three Impairment DGI 18/24, Prieto 46/56 Short Term Goal (STG) Pt will be educated on at least 3 fall risk strategies to decrease frequency of falls at home STG Duration 3 weeks [facility] Goal (LTG) Pt will improve DGI score >19/ 24 (WFL) in order to demonstrate lower fall risk during dynamic tasks like working on boat LTG Duration 10 weeks Two Impairment trunk and hip weakness leading to decreased balance, transfers Usp Goal (LTG) Pt will improve trunk and L hip strength to at least 4/5 globally in order to demonstrate increased strength for gait, balance, and transfers LTG Duration 10 weeks One Impairment not performing HEP Career Counselor Goal (LTG) Pt will report compliance with HEP at least 3x/wk in order to maximize progression with PT and promote transition to maintenance program upon discharge LTG Duration 10 weeks Assessment Summary Assessment Pt improved understanding HEP with cuing and use HOs. Progressed anterior thigh shiva and FIg 4 stretch for soreness reduction in hips with good response reported. Improve hip abd strengthening during addition of step ups today, without UE support needed, only opp LE tap step for stability. Physical Therapy Plan Frequency and Duration Frequency of Treatment 2x/Week Duration of treatment (weeks) 10 Plan of Care Start Date 05/29/24 Plan of Care End Date 08/07/23 Therapeutic Interventions Therapeutic Interventions Balance Training,Gait Training ,Home Exercise Program,Joint Mobilizations,Manual Therapy, Neuromuscular Re-education, Orthotic/Prosthetic Management ,Patient/Caregiver Education, Self-Care/Home Management, Sensory Integration,Soft Tissue Mobilization,Taping, Therapeutic Activities, Therapeutic Exercises Modalities Cold Pack/Ice Massage,Electric Stimulation,Hot Packs, Ultrasound Other Therapeutic Interventions grade I-II lumbar mobilizations, no traction Next Visit Focus/Plan Next Note Type Treatment Note Next Visit Plan Review HEP step ups, Shiva and FIg 4 stretch for soreness reduction. NExt tx: add corner balance and EC fwd, bkward walking. POC cont with seated and standing core. Progressive BLE strength and balance training (sherri turns and picking up objects) Promote BLE strength and endurance: STS, LAQ, leg press , hip abduction, heel raises, toe raises, step ups Improve TS and LS mobility and strength: carries, squats, picking up objects Balance sherri dynamic and fall risk reduction
--- NOTE | 2024-06-12 12:21 | PT.OTN ---
Current Diagnoses Other chronic pain (06/12/24) Stiffness of left hip, not elsewhere classified (06/12/24) Low back pain, unspecified (06/12/24) Other abnormalities of gait and mobility (06/12/24) Other lack of coordination (06/12/24) Other symptoms and signs involving the musculoskeletal system (06/12/24) Weakness (06/12/24) Physical Therapy Treatment Note PT-OP-A Visit Information Start: 05/28/24 17:03 Freq: Status: Active Protocol: Document 06/12/24 11:31 NM (Rec: 06/12/24 12:21 NM [id number]) Out-Patient Physical Therapy Visit Information Visit Information Visit Type Treatment Note Visit Note KX after 19 visits Visit Start Time 11:32 Visit Stop Time 12:15 Visit Number 5 (11/28 nithya/ dylan) PT-OP-B Current Condition Start: 05/28/24 17:03 Freq: Status: Active Protocol: Document 05/29/24 11:25 NM (Rec: 05/29/24 12:27 NM [id number]) Current Condition History of Current Condition Current Complaints limited hip mobility, balance, getting History of Current Condition Pt presents with back pain and L hip pain, in addition to gait and balance abnormalities . He has had back pain for 15 years, does not recall any specific ROMÁN. 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 He also has L hip pain whihch began 3-4 months ago following a fall. Pt fell when jumping over a small wall; states that he did not follow up with PCP or xrays. Still has intermittent pain but reports no pain with walking. Went to chiropractor following fall which has helped. Has been going to chiropractor for years to help with back. Chiro told pt that RLE is shorter, has wedge in R shoe 1/2 which is causing hip pain and reports that has helped pain. Pt has hx of several falls. He reports that he feels off balance with transfers, being on boat, and turning- states has to catch himself. He has stairs in house (split level), missing rail on last flight going up ( R going up- not a real rail). No dizziness or lightheadedness, just unable to catch self once he starts to fall. Reports difficulty with transfers, strength, balance, donning/doffing L shoe/sock. Has hx of sciatic pain but not currently, last episode was 8 years ago; back is just more achy now especially after performing strenuous activities or twisting such as to work on his boat. Prior Treatments and Tests November 2024 lumbar spine x ray- Impression: multilevel degenerative changes of lumbar spine (mild dextrocurvature, minimal retrolisthesis of L1 on L2, minimal anterolisthesis on L3 on L4, multilevel facet arthropathy worse at L4-5 and L5-S1) Treatment Goals Patient/Caregiver Goals how to improve BLE strength and have fewer falls Current Functional Impairments (Reported) Functional Limitations- Mobility/Gait walks every day w/ do mi- unsteady Functional Limitations- Work/School reading, watching videos Functional Limitations- Recreation/ works on boat, has trouble Hobbies with twisting gym a few weeks every month, has pool membership PT-OP-C Subjective Start: 05/28/24 17:03 Freq: Status: Active Protocol: Document 06/12/24 11:31 NM (Rec: 06/12/24 12:21 NM [id number]) OP-PT Subjective Patient Comments Patient Comments Pt brought his bands and HEP. Feels good after last session. Still reports quad soreness, has been doing exercises every other day. Pt reports less back pain since evaluation. He continues to reports soreness in L hip, residual, stiffer. PT-OP-D Balance Start: 05/28/24 17:03 Freq: Status: Active Protocol: Document 05/29/24 11:25 NM (Rec: 05/29/24 12:27 NM [id number]) Balance Tests Prieto Balance Test Prieto Balance Test Score 46/56 mCTSIB mCTSIB Position 1 stable, eyes open 30 sec mCTSIB Position 2 stable, eyes closed 25 sec mCTSIB Position 3 unstable, eyes open 30 sec w/ sway mCTSIB Position 4 unstable, eyes closed 10 sec w / inc sway PT-OP-E Functional Tests Start: 05/28/24 17:03 Freq: Status: Active Protocol: Document 05/29/24 11:25 NM (Rec: 05/29/24 12:27 NM [id number]) Functional Tests 30 Second Sit to Stand Test Score 14 Comments from chair; fatigues; dec control Dynamic Gait Index (DGI) Score 18/24 Five Times Sit to Stand Test Score 9 Comments from chair; poor ecc control PT-OP-F Manual Assessment Start: 05/28/24 17:03 Freq: Status: Active Protocol: Document 05/29/24 11:25 NM (Rec: 05/29/24 12:27 NM [id number]) Manual Assessments Soft Tissue Assessment Soft Tissue Mobility Assessment Tightness of hip ER and hip flexors, hamstrings Joint Mobility Assessment Joint Mobility Assessment Decreased L hip mobility AROM; will continue to assess in future sessions PT-OP-G Mobility & Gait Start: 05/28/24 17:03 Freq: Status: Active Protocol: Document 05/29/24 11:25 NM (Rec: 05/29/24 12:27 NM [id number]) OP Gait Assessment Gait Distance (Feet) 200 Factors Limiting Gait Function Factors Limiting Gait Function Decreased Strength,Poor Balance Comments Gait Comments Increased sway with L turn, decreased trunk stability and wider based gait PT-OP-H Neuro Start: 05/28/24 17:03 Freq: Status: Active Protocol: Document 05/29/24 11:25 NM (Rec: 05/29/24 12:27 NM [id number]) Deep Tendon Reflex & Clonus Assessment Deep Tendon Reflex Right Patellar Deep Tendon Reflex 1+ Diminished Left Patellar Deep Tendon Reflex 2+ Normal PT-OP-J Posture/Palpation/Skin Start: 05/28/24 17:03 Freq: Status: Active Protocol: Document 05/29/24 11:25 NM (Rec: 05/29/24 12:27 NM [id number]) Palpation Assessment Location L hip Palpation Details mild tenderness over L hip posterior to greater trochanter back Palpation Details No tenderness to palpation along midline; increased soft tissue restrictions of paraspinals especially on R side small curve at thoracic and lumbar spines R PT-OP-K Range of Motion Start: 05/28/24 17:03 Freq: Status: Active Protocol: Document 05/29/24 11:25 NM (Rec: 05/29/24 12:27 NM [id number]) Lumbar Spine Range of Motion Lumbar Spine Active Percentage Flexion 50 Extension 50 Rotation Left 100 Rotation Right 100 Lateral Flexion Left 75 Lateral Flexion Right 50 Comments pain with R LF w/ L hip; B rot Hip Goniometric Range of Motion Hip right Internal Rotation 20 External Rotation 35 left Internal Rotation 25 External Rotation 25 Comments IR PT-OP-L Special Tests Start: 05/28/24 17:03 Freq: Status: Active Protocol: Document 05/29/24 11:25 NM (Rec: 05/29/24 12:27 NM [id number]) Special Tests Lumbar Spine Special Tests Brandon/quadrant Test Results + Comments hips PT-OP-M Strength Start: 05/28/24 17:03 Freq: Status: Active Protocol: Document 05/29/24 11:25 NM (Rec: 05/29/24 12:27 NM [id number]) Trunk Strength Trunk Manual Muscle Testing Flexion 3+ Fair+ Extension 3+ Fair+ Rotation Left 4 Good Rotation Right 4 Good Lateral Flexion Left 4 Good Lateral Flexion Right 4 Good Comments challenging to maintain balance Hip Strength Hip Manual Muscle Testing Right Flexion (L2) 4 Good Extension (S1) 4- Good- Abduction 3+ Fair+ Adduction 4- Good- External Rotation 3+ Fair+ Internal Rotation 3+ Fair+ Left Flexion (L2) 4 Good Extension (S1) 3+ Fair+ Abduction 3+ Fair+ Adduction 4- Good- External Rotation 3+ Fair+ Internal Rotation 3+ Fair+ Knee Strength Knee Manual Muscle Testing Right Flexion (S2) 4- Good- Extension (L3) 4- Good- Left Flexion (S2) 4- Good- Extension (L3) 4- Good- PT-OP-Q Treatments Start: 05/28/24 17:03 Freq: Status: Active Protocol: Document 06/12/24 11:31 NM (Rec: 06/12/24 12:21 NM [id number]) Therapeutic Exercises Sitting Exercises STS Sitting Exercise Name HEP review Resistance Tb #4 dark blue at thighs Equipment Used mesh chair, arms across chest Reps/Minutes 2x10- BID for HEP Comments occ cues slower hip hinge descend sit, scoot a little fwd seated HS stretch Sitting Exercise Name with AP (HEP review) Side bilateral Equipment Used with slight fwd trunk lean Reps/Minutes 60 ea Comments cued nuetral foot position, keep heel on ground hip abduction Sitting Exercise Name glute med dayday Side bilateral Resistance level 4 Tb dark blue Reps/Minutes 2x60 hold Comments before balance exercise Standing Exercises step ups Standing Exercise Name HEP review: fwd & lateral Side bilateral Equipment Used 6 step, near rail for support if needed Reps/Minutes 15 each LE each direction Comments cued execution, midline trunk align Neuro Re-Education Treatment Balance Activities NBOS Comments 1. SLS, 2x30 with prn support from hands on //bars 2. tandem stance, 2x30 ea prn support on//bars for balance 3. head turns on foam 4. vertical nods on foam stepping Details close SBA-CGA Comments 1. tandem, 2x10 ft 2. carioca, 10 ft pain w/ crossing behind 3. retro reciprocal, 4x10 ft prn hand support dynamic walking Details head turns side to side, vertical/down Surface tile hallway Reps/Duration 4 laps total Comments cued taller posture /c rhomboid, increase TALHA, improved stability and able increased pacing stride. Viers L with HT R, improved midline stab with cuing. PT-OP-T Assessment and Plan Start: 05/28/24 17:03 Freq: Status: Active Protocol: Document 06/12/24 11:31 NM (Rec: 06/12/24 12:21 NM [id number]) Physical Therapy Assessment Goals Four Impairment 30 sec STS = 14, below age- gender norms [facility] Goal (LTG) Pt will be able to perform 30 sec STS from standard chair without BUE support for age- gender norm (17) in order to demonstrate increased BLE strength and postural support for improved transfers LTG Duration 10 weeks Three Impairment DGI 18/24, Prieto 46/56 Short Term Goal (STG) Pt will be educated on at least 3 fall risk strategies to decrease frequency of falls at home STG Duration 3 weeks Yardage Control Operator Forming Goal (LTG) Pt will improve DGI score >19/ 24 (WFL) in order to demonstrate lower fall risk during dynamic tasks like working on boat LTG Duration 10 weeks Two Impairment trunk and hip weakness leading to decreased balance, transfers [facility] Goal (LTG) Pt will improve trunk and L hip strength to at least 4/5 globally in order to demonstrate increased strength for gait, balance, and transfers LTG Duration 10 weeks One Impairment not performing HEP [facility] Goal (LTG) Pt will report compliance with HEP at least 3x/wk in order to maximize progression with PT and promote transition to maintenance program upon discharge LTG Duration 10 weeks Assessment Summary Assessment Pt tolerated session well, especially with progressions in balance. Increased reps for step ups and trialed hip [address] for strengthening. Pt responds well to gaze stabilization training in stance and ambulation, changing TALHA with balance. LLE is weaker and more difficult to maintain stability. HEP review at pt request for correct execution with STS and step ups. Moderate cues for correct execution and safety. Pt would continue to benefit from skilled PT for progressive strengthening and balance training to improve functional mobility and confidene during ADLs. Physical Therapy Plan Frequency and Duration Frequency of Treatment 2x/Week Duration of treatment (weeks) 10 Plan of Care Start Date 05/29/24 Plan of Care End Date 08/07/23 Therapeutic Interventions Therapeutic Interventions Balance Training,Gait Training ,Home Exercise Program,Joint Mobilizations,Manual Therapy, Neuromuscular Re-education, Orthotic/Prosthetic Management ,Patient/Caregiver Education, Self-Care/Home Management, Sensory Integration,Soft Tissue Mobilization,Taping, Therapeutic Activities, Therapeutic Exercises Modalities Cold Pack/Ice Massage,Electric Stimulation,Hot Packs, Ultrasound Other Therapeutic Interventions grade I-II lumbar mobilizations, no traction Next Visit Focus/Plan Next Note Type Treatment Note Next Visit Plan add resisted stepping or hip 3 way, trial leg press. HEP review as needed. stretches for soreness reduction as needed. Trial hip jt mob L. balance on shuttle balance, obstacles and unstable surfaces POC cont with seated and standing core. Progressive BLE strength and balance training (sherri turns and picking up objects) Promote BLE strength and endurance: STS, LAQ, leg press , hip abduction, heel raises, toe raises, step ups Improve TS and LS mobility and strength: carries, squats, picking up objects Balance sherri dynamic and fall risk reduction
--- NOTE | 2024-06-23 15:39 | PT.OTN ---
Current Diagnoses Other chronic pain (06/23/24) Stiffness of left hip, not elsewhere classified (06/23/24) Low back pain, unspecified (06/23/24) Other abnormalities of gait and mobility (06/23/24) Other lack of coordination (06/23/24) Other symptoms and signs involving the musculoskeletal system (06/23/24) Weakness (06/23/24) Physical Therapy Treatment Note PT-OP-A Visit Information Start: 05/28/24 17:03 Freq: Status: Active Protocol: Document 06/23/24 13:28 AB (Rec: 06/23/24 15:39 AB [id number]) Out-Patient Physical Therapy Visit Information Visit Information Visit Type Treatment Note Visit Note KX after 19 visits Visit Start Time 14:33 Visit Stop Time 15:17 Visit Number 6 Number of PROCESS TANK TENDER Visits 1 Evaluation Information Evaluation Date 05/29/24 Precautions Precautions L eye removed, fall risk PT-OP-B Current Condition Start: 05/28/24 17:03 Freq: Status: Active Protocol: Document 05/29/24 11:25 NM (Rec: 05/29/24 12:27 NM [id number]) Current Condition History of Current Condition Current Complaints limited hip mobility, balance, getting History of Current Condition Pt presents with back pain and L hip pain, in addition to gait and balance abnormalities . He has had back pain for 15 years, does not recall any specific ROMÁN. 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 He also has L hip pain whihch began 3-4 months ago following a fall. Pt fell when jumping over a small wall; states that he did not follow up with PCP or xrays. Still has intermittent pain but reports no pain with walking. Went to chiropractor following fall which has helped. Has been going to chiropractor for years to help with back. Chiro told pt that RLE is shorter, has wedge in R shoe 1/2 which is causing hip pain and reports that has helped pain. Pt has hx of several falls. He reports that he feels off balance with transfers, being on boat, and turning- states has to catch himself. He has stairs in house (split level), missing rail on last flight going up ( R going up- not a real rail). No dizziness or lightheadedness, just unable to catch self once he starts to fall. Reports difficulty with transfers, strength, balance, donning/doffing L shoe/sock. Has hx of sciatic pain but not currently, last episode was 8 years ago; back is just more achy now especially after performing strenuous activities or twisting such as to work on his boat. Prior Treatments and Tests November 2024 lumbar spine x ray- Impression: multilevel degenerative changes of lumbar spine (mild dextrocurvature, minimal retrolisthesis of L1 on L2, minimal anterolisthesis on L3 on L4, multilevel facet arthropathy worse at L4-5 and L5-S1) Treatment Goals Patient/Caregiver Goals how to improve BLE strength and have fewer falls Current Functional Impairments (Reported) Functional Limitations- Mobility/Gait walks every day w/ do mi- unsteady Functional Limitations- Work/School reading, watching videos Functional Limitations- Recreation/ works on boat, has trouble Hobbies with twisting gym a few weeks every month, has pool membership PT-OP-C Subjective Start: 05/28/24 17:03 Freq: Status: Active Protocol: Document 06/23/24 13:28 AB (Rec: 06/23/24 15:39 AB [id number]) OP-PT Subjective Patient Comments Patient Comments Patient reports he is about the same. Patient reports he has been off schedule with the holidays, hasn't done HEP as much has he should have. PT-OP-D Balance Start: 05/28/24 17:03 Freq: Status: Active Protocol: Document 05/29/24 11:25 NM (Rec: 05/29/24 12:27 NM [id number]) Balance Tests Prieto Balance Test Prieto Balance Test Score 46/56 mCTSIB mCTSIB Position 1 stable, eyes open 30 sec mCTSIB Position 2 stable, eyes closed 25 sec mCTSIB Position 3 unstable, eyes open 30 sec w/ sway mCTSIB Position 4 unstable, eyes closed 10 sec w / inc sway PT-OP-E Functional Tests Start: 05/28/24 17:03 Freq: Status: Active Protocol: Document 05/29/24 11:25 NM (Rec: 05/29/24 12:27 NM [id number]) Functional Tests 30 Second Sit to Stand Test Score 14 Comments from chair; fatigues; dec control Dynamic Gait Index (DGI) Score 18/24 Five Times Sit to Stand Test Score 9 Comments from chair; poor ecc control PT-OP-F Manual Assessment Start: 05/28/24 17:03 Freq: Status: Active Protocol: Document 05/29/24 11:25 NM (Rec: 05/29/24 12:27 NM [id number]) Manual Assessments Soft Tissue Assessment Soft Tissue Mobility Assessment Tightness of hip ER and hip flexors, hamstrings Joint Mobility Assessment Joint Mobility Assessment Decreased L hip mobility AROM; will continue to assess in future sessions PT-OP-G Mobility & Gait Start: 05/28/24 17:03 Freq: Status: Active Protocol: Document 05/29/24 11:25 NM (Rec: 05/29/24 12:27 NM [id number]) OP Gait Assessment Gait Distance (Feet) 200 Factors Limiting Gait Function Factors Limiting Gait Function Decreased Strength,Poor Balance Comments Gait Comments Increased sway with L turn, decreased trunk stability and wider based gait PT-OP-H Neuro Start: 05/28/24 17:03 Freq: Status: Active Protocol: Document 05/29/24 11:25 NM (Rec: 05/29/24 12:27 NM [id number]) Deep Tendon Reflex & Clonus Assessment Deep Tendon Reflex Right Patellar Deep Tendon Reflex 1+ Diminished Left Patellar Deep Tendon Reflex 2+ Normal PT-OP-J Posture/Palpation/Skin Start: 05/28/24 17:03 Freq: Status: Active Protocol: Document 05/29/24 11:25 NM (Rec: 05/29/24 12:27 NM [id number]) Palpation Assessment Location L hip Palpation Details mild tenderness over L hip posterior to greater trochanter back Palpation Details No tenderness to palpation along midline; increased soft tissue restrictions of paraspinals especially on R side small curve at thoracic and lumbar spines R PT-OP-K Range of Motion Start: 05/28/24 17:03 Freq: Status: Active Protocol: Document 05/29/24 11:25 NM (Rec: 05/29/24 12:27 NM [id number]) Lumbar Spine Range of Motion Lumbar Spine Active Percentage Flexion 50 Extension 50 Rotation Left 100 Rotation Right 100 Lateral Flexion Left 75 Lateral Flexion Right 50 Comments pain with R LF w/ L hip; B rot Hip Goniometric Range of Motion Hip right Internal Rotation 20 External Rotation 35 left Internal Rotation 25 External Rotation 25 Comments IR PT-OP-L Special Tests Start: 05/28/24 17:03 Freq: Status: Active Protocol: Document 05/29/24 11:25 NM (Rec: 05/29/24 12:27 NM [id number]) Special Tests Lumbar Spine Special Tests Brandon/quadrant Test Results + Comments hips PT-OP-M Strength Start: 05/28/24 17:03 Freq: Status: Active Protocol: Document 05/29/24 11:25 NM (Rec: 05/29/24 12:27 NM [id number]) Trunk Strength Trunk Manual Muscle Testing Flexion 3+ Fair+ Extension 3+ Fair+ Rotation Left 4 Good Rotation Right 4 Good Lateral Flexion Left 4 Good Lateral Flexion Right 4 Good Comments challenging to maintain balance Hip Strength Hip Manual Muscle Testing Right Flexion (L2) 4 Good Extension (S1) 4- Good- Abduction 3+ Fair+ Adduction 4- Good- External Rotation 3+ Fair+ Internal Rotation 3+ Fair+ Left Flexion (L2) 4 Good Extension (S1) 3+ Fair+ Abduction 3+ Fair+ Adduction 4- Good- External Rotation 3+ Fair+ Internal Rotation 3+ Fair+ Knee Strength Knee Manual Muscle Testing Right Flexion (S2) 4- Good- Extension (L3) 4- Good- Left Flexion (S2) 4- Good- Extension (L3) 4- Good- PT-OP-Q Treatments Start: 05/28/24 17:03 Freq: Status: Active Protocol: Document 06/23/24 13:28 AB (Rec: 06/23/24 15:39 AB [id number]) Gym Equipment Shuttle Balance red Details normal TALHA and stagger stance Reps/Duration 3 min Comments visual scanning and head turns with normal TALHA Therapeutic Exercises Sitting Exercises STS Sitting Exercise Name Reviewed pain rules Resistance 3lbs in each UE level 4 royal blue above knees Equipment Used mesh chair Reps/Minutes 15 X2 Comments Verbal cues to sit down slowly seated HS stretch Sitting Exercise Name with AP (HEP review) Side bilateral Equipment Used with slight fwd trunk lean Reps/Minutes 60 ea Comments between sets of balance and strength ex hip abduction Sitting Exercise Name glute med dayday Side bilateral Resistance level 4 Tb dark blue Reps/Minutes 60 X 1 Comments before balance exercise to activate glute med Standing Exercises 3 way hip Side bilateral Reps/Minutes X16 each side Comments Increased verbal cues for buttocks back, verbal cues and mirrorforkneealign side stepping with band Resistance level 4 band above knees Reps/Minutes 10 feet left and right X 4 Comments verbal cues to avoid toeing out and to squat Therapeutic Activity Therapeutic Activity squat to reach floor Reps/Minutes X3 Comments Verbal cues for hip hinge, CGA to very minimal assist as unsteady on one trial. Neuro Re-Education Treatment Balance Activities tandem stepping Details fwd and retro Reps/Duration 10 feet X 3 fwd X3 retro Comments CGA verbal cues to initiate with hands above bars NBOS Comments 1. SLS, with and without foam, with head turns and visual scanning with prn support from hands on //bars (Patient ed to add visual scanning and head turns to HEP of SLS ) hurdles Details receiprocal stepping Surface 6 laps fwd, one lap left and right Reps/Duration 5 laps total Comments CGA for fwd, hands above bars PT-OP-T Assessment and Plan Start: 05/28/24 17:03 Freq: Status: Active Protocol: Document 06/23/24 13:28 AB (Rec: 06/23/24 15:39 AB [id number]) Physical Therapy Assessment Goals Four Impairment 30 sec STS = 14, below age- gender norms Fdc Goal (LTG) Pt will be able to perform 30 sec STS from standard chair without BUE support for age- gender norm (17) in order to demonstrate increased BLE strength and postural support for improved transfers LTG Duration 10 weeks Three Impairment DGI 18/24, Prieto 46/56 Short Term Goal (STG) Pt will be educated on at least 3 fall risk strategies to decrease frequency of falls at home STG Duration 3 weeks Pharmacology Associate Goal (LTG) Pt will improve DGI score >19/ 24 (WFL) in order to demonstrate lower fall risk during dynamic tasks like working on boat LTG Duration 10 weeks Two Impairment trunk and hip weakness leading to decreased balance, transfers Fdc Goal (LTG) Pt will improve trunk and L hip strength to at least 4/5 globally in order to demonstrate increased strength for gait, balance, and transfers LTG Duration 10 weeks One Impairment not performing HEP Fdc Goal (LTG) Pt will report compliance with HEP at least 3x/wk in order to maximize progression with PT and promote transition to maintenance program upon discharge LTG Duration 10 weeks Assessment Summary Assessment Patient with good tolerance to session rating pain 0/10 end of session. Quad dominant pattern with squats and increased posterior pelvic tilt with lower depth squat to reach floor continues to be a problem. Physical Therapy Plan Frequency and Duration Frequency of Treatment 2x/Week Duration of treatment (weeks) 10 Plan of Care Start Date 05/29/24 Plan of Care End Date 08/07/23 Next Visit Focus/Plan Next Note Type Treatment Note Next Visit Plan continue in clinic resisted stepping or hip 3 way, trial leg press. HEP review as needed. stretches for soreness reduction as needed. Trial hip jt mob L. balance on shuttle balance, obstacles and unstable surfaces POC cont with seated and standing core. Progressive BLE strength and balance training (sherri turns and picking up objects) Promote BLE strength and endurance: leg press, hip abduction, heel raises, toe raises, step ups Improve TS and LS mobility and strength: carries, (Possibly focus on hip hinge )squats, picking up objects Balance sherri dynamic and fall risk reduction
--- NOTE | 2024-06-25 12:55 | PT.OTN ---
Current Diagnoses Other chronic pain (06/25/24) Stiffness of left hip, not elsewhere classified (06/25/24) Low back pain, unspecified (06/25/24) Other abnormalities of gait and mobility (06/25/24) Other lack of coordination (06/25/24) Other symptoms and signs involving the musculoskeletal system (06/25/24) Weakness (06/25/24) Physical Therapy Treatment Note PT-OP-A Visit Information Start: 05/28/24 17:03 Freq: Status: Active Protocol: Document 06/25/24 11:30 NM (Rec: 06/25/24 12:27 NM [id number]) Out-Patient Physical Therapy Visit Information Visit Information Visit Type Treatment Note Visit Note KX after 19 visits Visit Start Time 11:32 Visit Stop Time 12:15 Visit Number 7 (01/28 w/ sarakeo) Evaluation Information Evaluation Date 05/29/24 Precautions Precautions L eye removed, fall risk PT-OP-B Current Condition Start: 05/28/24 17:03 Freq: Status: Active Protocol: Document 05/29/24 11:25 NM (Rec: 05/29/24 12:27 NM [id number]) Current Condition History of Current Condition Current Complaints limited hip mobility, balance, getting History of Current Condition Pt presents with back pain and L hip pain, in addition to gait and balance abnormalities . He has had back pain for 15 years, does not recall any specific ROMÁN. 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 He also has L hip pain whihch began 3-4 months ago following a fall. Pt fell when jumping over a small wall; states that he did not follow up with PCP or xrays. Still has intermittent pain but reports no pain with walking. Went to chiropractor following fall which has helped. Has been going to chiropractor for years to help with back. Chiro told pt that RLE is shorter, has wedge in R shoe 1/2 which is causing hip pain and reports that has helped pain. Pt has hx of several falls. He reports that he feels off balance with transfers, being on boat, and turning- states has to catch himself. He has stairs in house (split level), missing rail on last flight going up ( R going up- not a real rail). No dizziness or lightheadedness, just unable to catch self once he starts to fall. Reports difficulty with transfers, strength, balance, donning/doffing L shoe/sock. Has hx of sciatic pain but not currently, last episode was 8 years ago; back is just more achy now especially after performing strenuous activities or twisting such as to work on his boat. Prior Treatments and Tests November 2024 lumbar spine x ray- Impression: multilevel degenerative changes of lumbar spine (mild dextrocurvature, minimal retrolisthesis of L1 on L2, minimal anterolisthesis on L3 on L4, multilevel facet arthropathy worse at L4-5 and L5-S1) Treatment Goals Patient/Caregiver Goals how to improve BLE strength and have fewer falls Current Functional Impairments (Reported) Functional Limitations- Mobility/Gait walks every day w/ do mi- unsteady Functional Limitations- Work/School reading, watching videos Functional Limitations- Recreation/ works on boat, has trouble Hobbies with twisting gym a few weeks every month, has pool membership PT-OP-C Subjective Start: 05/28/24 17:03 Freq: Status: Active Protocol: Document 06/25/24 11:30 NM (Rec: 06/25/24 12:27 NM [id number]) OP-PT Subjective Patient Comments Patient Comments Pt reports sore after thanksgiving. He reports last session went well, was not sore. He states he did HEP yesterday, not sore. Reports that he gets occasional hip pain, especially if standing on LLE (lateral hip sherri with ER) PT-OP-D Balance Start: 05/28/24 17:03 Freq: Status: Active Protocol: Document 05/29/24 11:25 NM (Rec: 05/29/24 12:27 NM [id number]) Balance Tests Prieto Balance Test Prieto Balance Test Score 46/56 mCTSIB mCTSIB Position 1 stable, eyes open 30 sec mCTSIB Position 2 stable, eyes closed 25 sec mCTSIB Position 3 unstable, eyes open 30 sec w/ sway mCTSIB Position 4 unstable, eyes closed 10 sec w / inc sway PT-OP-E Functional Tests Start: 05/28/24 17:03 Freq: Status: Active Protocol: Document 05/29/24 11:25 NM (Rec: 05/29/24 12:27 NM [id number]) Functional Tests 30 Second Sit to Stand Test Score 14 Comments from chair; fatigues; dec control Dynamic Gait Index (DGI) Score 18/ Five Times Sit to Stand Test Score 9 Comments from chair; poor ecc control PT-OP-F Manual Assessment Start: 05/28/24 17:03 Freq: Status: Active Protocol: Document 05/29/24 11:25 NM (Rec: 05/29/24 12:27 NM [id number]) Manual Assessments Soft Tissue Assessment Soft Tissue Mobility Assessment Tightness of hip ER and hip flexors, hamstrings Joint Mobility Assessment Joint Mobility Assessment Decreased L hip mobility AROM; will continue to assess in future sessions PT-OP-G Mobility & Gait Start: 05/28/24 17:03 Freq: Status: Active Protocol: Document 05/29/24 11:25 NM (Rec: 05/29/24 12:27 NM [id number]) OP Gait Assessment Gait Distance (Feet) 200 Factors Limiting Gait Function Factors Limiting Gait Function Decreased Strength,Poor Balance Comments Gait Comments Increased sway with L turn, decreased trunk stability and wider based gait PT-OP-H Neuro Start: 05/28/24 17:03 Freq: Status: Active Protocol: Document 05/29/24 11:25 NM (Rec: 05/29/24 12:27 NM [id number]) Deep Tendon Reflex & Clonus Assessment Deep Tendon Reflex Right Patellar Deep Tendon Reflex 1+ Diminished Left Patellar Deep Tendon Reflex 2+ Normal PT-OP-J Posture/Palpation/Skin Start: 05/28/24 17:03 Freq: Status: Active Protocol: Document 05/29/24 11:25 NM (Rec: 05/29/24 12:27 NM [id number]) Palpation Assessment Location L hip Palpation Details mild tenderness over L hip posterior to greater trochanter back Palpation Details No tenderness to palpation along midline; increased soft tissue restrictions of paraspinals especially on R side small curve at thoracic and lumbar spines R PT-OP-K Range of Motion Start: 05/28/24 17:03 Freq: Status: Active Protocol: Document 05/29/24 11:25 NM (Rec: 05/29/24 12:27 NM [id number]) Lumbar Spine Range of Motion Lumbar Spine Active Percentage Flexion 50 Extension 50 Rotation Left 100 Rotation Right 100 Lateral Flexion Left 75 Lateral Flexion Right 50 Comments pain with R LF w/ L hip; B rot Hip Goniometric Range of Motion Hip right Internal Rotation 20 External Rotation 35 left Internal Rotation 25 External Rotation 25 Comments IR PT-OP-L Special Tests Start: 05/28/24 17:03 Freq: Status: Active Protocol: Document 05/29/24 11:25 NM (Rec: 05/29/24 12:27 NM [id number]) Special Tests Lumbar Spine Special Tests Brandon/quadrant Test Results + Comments hips PT-OP-M Strength Start: 05/28/24 17:03 Freq: Status: Active Protocol: Document 05/29/24 11:25 NM (Rec: 05/29/24 12:27 NM [id number]) Trunk Strength Trunk Manual Muscle Testing Flexion 3+ Fair+ Extension 3+ Fair+ Rotation Left 4 Good Rotation Right 4 Good Lateral Flexion Left 4 Good Lateral Flexion Right 4 Good Comments challenging to maintain balance Hip Strength Hip Manual Muscle Testing Right Flexion (L2) 4 Good Extension (S1) 4- Good- Abduction 3+ Fair+ Adduction 4- Good- External Rotation 3+ Fair+ Internal Rotation 3+ Fair+ Left Flexion (L2) 4 Good Extension (S1) 3+ Fair+ Abduction 3+ Fair+ Adduction 4- Good- External Rotation 3+ Fair+ Internal Rotation 3+ Fair+ Knee Strength Knee Manual Muscle Testing Right Flexion (S2) 4- Good- Extension (L3) 4- Good- Left Flexion (S2) 4- Good- Extension (L3) 4- Good- PT-OP-Q Treatments Start: 05/28/24 17:03 Freq: Status: Active Protocol: Document 06/25/24 11:30 NM (Rec: 06/25/24 12:27 NM [id number]) Therapeutic Exercises Sitting Exercises pelvic tilts Sitting Exercise Name sitting to neutral Side bilateral Reps/Minutes 10 STS Sitting Exercise Name 1. STS, 2. 30 sec STS Side bilateral Equipment Used standard chair: 1. lvl 4 band, 2. AROM Reps/Minutes 1. 10, 2. 13 Comments good form seated HS stretch Sitting Exercise Name with AP (HEP review) Side bilateral Equipment Used with slight fwd trunk lean Reps/Minutes 60 ea Comments between sets of balance and strength ex hip abduction Sitting Exercise Name glute med dayday Side bilateral Resistance level 4 Tb dark blue Reps/Minutes 60 X 1 Standing Exercises marching Side bilateral Resistance level 1 band at toes Equipment Used 1 hand support for balance Reps/Minutes 15 ea hip extension Side bilateral Resistance level 2 band at thighs Equipment Used hand support on rail for balance Reps/Minutes 15 ea Comments cued no trunk lean, less ROM for control, abd bracing hip abduction Side bilateral Resistance level 2 band at thighs Equipment Used 1 hand support on rail for balance Reps/Minutes 15 ea Comments cued no trunk lean, less ROM for control Therapeutic Activity Therapeutic Activity squat to reach floor Reps/Minutes 8 minutes Comments 1. hip hinge AROM w/ verbal and self tactile cues 2. hip hinge w/ squat 3. hip hinge w/ squat and reach 4. picking up kaplan bags from floor via above Cueing for weight shifting, ppt, hip hinge, dropping bottom and maintaining weight over midfoot. Improved from CGA to close SBA during session Neuro Re-Education Treatment Balance Activities shuttle balance Details red Surface unstable Reps/Duration 6 minutes Comments 1. A/P WB equally 2. A/P WB staggered stance ea direction 3. M/L Min A to steady. prn hand support. cueing for weight shifting, abdominal bracing hip 3 way Details close SBA Surface stable Equipment prn hand support on bar to steady Reps/Duration 10 ea direction NBOS Comments SLS, with and without foam, with head turns and visual scanning with prn support from hands on //bars PT-OP-T Assessment and Plan Start: 05/28/24 17:03 Freq: Status: Active Protocol: Document 06/25/24 11:30 NM (Rec: 06/25/24 12:27 NM [id number]) Physical Therapy Assessment Goals Four Impairment 30 sec STS = 16, below age- gender norms Mcfp Goal (LTG) Pt will be able to perform 30 sec STS from standard chair without BUE support for age- gender norm (17) in order to demonstrate increased BLE strength and postural support for improved transfers 06/25/24: 13 from standard chair LTG Duration 10 weeks Three Impairment DGI 18/, Prieto 46/56 Short Term Goal (STG) Pt will be educated on at least 3 fall risk strategies to decrease frequency of falls at home 06/25/24: STG Duration 3 weeks Mcfp Goal (LTG) Pt will improve DGI score >19/ 24 (WFL) in order to demonstrate lower fall risk during dynamic tasks like working on boat LTG Duration 10 weeks Two Impairment trunk and hip weakness leading to decreased balance, transfers Mcfp Goal (LTG) Pt will improve trunk and L hip strength to at least 4/5 globally in order to demonstrate increased strength for gait, balance, and transfers LTG Duration 10 weeks One Impairment not performing HEP Superannuation Funds Manager Goal (LTG) Pt will report compliance with HEP at least 3x/wk in order to maximize progression with PT and promote transition to maintenance program upon discharge LTG Duration 10 weeks Assessment Summary Assessment Pt tolerated session well. Still demos very quad dominant squat, but improved with hip hinge training. Still needs cueing for hinge and posterior pelvic tilt, in addition to verbal cues for weight shifting to center TALHA. Changing TALHA challenging for pt especially without visual input. Needs CGA to min A to steady, demos most instability medial-laterally. Pt fatigues more quickly in L stance, especially at L hip; reports mild pain but resolves when exercises end; reduced when cued to limit compensations at trunk. Recommended that pt perform HEP first w/ LLL in stance to avoid fatiguing quickly. Pt would continue to benefit from skilled PT for progressive strengthening and balance training to improve functional mobility and decrease fall risk. Physical Therapy Plan Frequency and Duration Frequency of Treatment 2x/Week Duration of treatment (weeks) 10 Plan of Care Start Date 05/29/24 Plan of Care End Date 08/07/23 Therapeutic Interventions Therapeutic Interventions Balance Training,Gait Training ,Home Exercise Program,Joint Mobilizations,Manual Therapy, Neuromuscular Re-education, Orthotic/Prosthetic Management ,Patient/Caregiver Education, Self-Care/Home Management, Sensory Integration,Soft Tissue Mobilization,Taping, Therapeutic Activities, Therapeutic Exercises Modalities Cold Pack/Ice Massage,Electric Stimulation,Hot Packs, Ultrasound Other Therapeutic Interventions grade I-II lumbar mobilizations, no traction Next Visit Focus/Plan Next Note Type Progress Note Next Visit Plan trial bungee stepping. continue in clinic resisted stepping or hip 3 way, trial leg press. HEP review as needed. stretches for soreness reduction as needed. Trial hip jt mob L. balance on shuttle balance, obstacles and unstable surfaces POC cont with seated and standing core. Progressive BLE strength and balance training (sherri turns and picking up objects) Promote BLE strength and endurance: leg press, hip abduction, heel raises, toe raises, step ups Improve TS and LS mobility and strength: carries, (Possibly focus on hip hinge )squats, picking up objects Balance sherri dynamic and fall risk reduction
--- NOTE | 2024-06-30 12:23 | PT.OTN ---
Current Diagnoses Other chronic pain (06/30/24) Stiffness of left hip, not elsewhere classified (06/30/24) Low back pain, unspecified (06/30/24) Other abnormalities of gait and mobility (06/30/24) Other lack of coordination (06/30/24) Other symptoms and signs involving the musculoskeletal system (06/30/24) Weakness (06/30/24) Physical Therapy Treatment Note PT-OP-A Visit Information Start: 05/28/24 17:03 Freq: Status: Active Protocol: Document 06/30/24 11:30 NM (Rec: 06/30/24 12:23 NM [id number]) Out-Patient Physical Therapy Visit Information Visit Information Visit Type Progress Note Visit Note KX after 19 visits Visit Start Time 11:30 Visit Stop Time 12:15 Visit Number 8 Evaluation Information Evaluation Date 05/29/24 Precautions Precautions L eye removed, fall risk PT-OP-B Current Condition Start: 05/28/24 17:03 Freq: Status: Active Protocol: Document 05/29/24 11:25 NM (Rec: 05/29/24 12:27 NM [id number]) Current Condition History of Current Condition Current Complaints limited hip mobility, balance, getting History of Current Condition Pt presents with back pain and L hip pain, in addition to gait and balance abnormalities . He has had back pain for 15 years, does not recall any specific ROMÁN. 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 He also has L hip pain whihch began 3-4 months ago following a fall. Pt fell when jumping over a small wall; states that he did not follow up with PCP or xrays. Still has intermittent pain but reports no pain with walking. Went to chiropractor following fall which has helped. Has been going to chiropractor for years to help with back. Chiro told pt that RLE is shorter, has wedge in R shoe 1/2 which is causing hip pain and reports that has helped pain. Pt has hx of several falls. He reports that he feels off balance with transfers, being on boat, and turning- states has to catch himself. He has stairs in house (split level), missing rail on last flight going up ( R going up- not a real rail). No dizziness or lightheadedness, just unable to catch self once he starts to fall. Reports difficulty with transfers, strength, balance, donning/doffing L shoe/sock. Has hx of sciatic pain but not currently, last episode was 8 years ago; back is just more achy now especially after performing strenuous activities or twisting such as to work on his boat. Prior Treatments and Tests November 2024 lumbar spine x ray- Impression: multilevel degenerative changes of lumbar spine (mild dextrocurvature, minimal retrolisthesis of L1 on L2, minimal anterolisthesis on L3 on L4, multilevel facet arthropathy worse at L4-5 and L5-S1) Treatment Goals Patient/Caregiver Goals how to improve BLE strength and have fewer falls Current Functional Impairments (Reported) Functional Limitations- Mobility/Gait walks every day w/ do mi- unsteady Functional Limitations- Work/School reading, watching videos Functional Limitations- Recreation/ works on boat, has trouble Hobbies with twisting gym a few weeks every month, has pool membership PT-OP-C Subjective Start: 05/28/24 17:03 Freq: Status: Active Protocol: Document 06/30/24 11:30 NM (Rec: 06/30/24 12:23 NM [id number]) OP-PT Subjective Patient Comments Patient Comments Pt reports 1/10 L hip pain, reports about same after last sessio; just very tired. Pt reports no changes to hip regarding pain, but states that he using it more. He reports that his balance is improving but states still challenging. Soreness lasts 24 hours. States that last few days, he has had pain when waking in his hip and feels like will give out. PT-OP-D Balance Start: 05/28/24 17:03 Freq: Status: Active Protocol: Document 05/29/24 11:25 NM (Rec: 05/29/24 12:27 NM [id number]) Balance Tests Prieto Balance Test Prieto Balance Test Score 46/56 mCTSIB mCTSIB Position 1 stable, eyes open 30 sec mCTSIB Position 2 stable, eyes closed 25 sec mCTSIB Position 3 unstable, eyes open 30 sec w/ sway mCTSIB Position 4 unstable, eyes closed 10 sec w / inc sway PT-OP-E Functional Tests Start: 05/28/24 17:03 Freq: Status: Active Protocol: Document 05/29/24 11:25 NM (Rec: 05/29/24 12:27 NM [id number]) Functional Tests 30 Second Sit to Stand Test Score 14 Comments from chair; fatigues; dec control Dynamic Gait Index (DGI) Score 18 Five Times Sit to Stand Test Score 9 Comments from chair; poor ecc control PT-OP-F Manual Assessment Start: 05/28/24 17:03 Freq: Status: Active Protocol: Document 05/29/24 11:25 NM (Rec: 05/29/24 12:27 NM [id number]) Manual Assessments Soft Tissue Assessment Soft Tissue Mobility Assessment Tightness of hip ER and hip flexors, hamstrings Joint Mobility Assessment Joint Mobility Assessment Decreased L hip mobility AROM; will continue to assess in future sessions PT-OP-G Mobility & Gait Start: 05/28/24 17:03 Freq: Status: Active Protocol: Document 05/29/24 11:25 NM (Rec: 05/29/24 12:27 NM [id number]) OP Gait Assessment Gait Distance (Feet) 200 Factors Limiting Gait Function Factors Limiting Gait Function Decreased Strength,Poor Balance Comments Gait Comments Increased sway with L turn, decreased trunk stability and wider based gait PT-OP-H Neuro Start: 05/28/24 17:03 Freq: Status: Active Protocol: Document 05/29/24 11:25 NM (Rec: 05/29/24 12:27 NM [id number]) Deep Tendon Reflex & Clonus Assessment Deep Tendon Reflex Right Patellar Deep Tendon Reflex 1+ Diminished Left Patellar Deep Tendon Reflex 2+ Normal PT-OP-J Posture/Palpation/Skin Start: 05/28/24 17:03 Freq: Status: Active Protocol: Document 05/29/24 11:25 NM (Rec: 05/29/24 12:27 NM [id number]) Palpation Assessment Location L hip Palpation Details mild tenderness over L hip posterior to greater trochanter back Palpation Details No tenderness to palpation along midline; increased soft tissue restrictions of paraspinals especially on R side small curve at thoracic and lumbar spines R PT-OP-K Range of Motion Start: 05/28/24 17:03 Freq: Status: Active Protocol: Document 06/30/24 11:30 NM (Rec: 06/30/24 12:23 NM [id number]) Lumbar Spine Range of Motion Lumbar Spine Active Percentage Flexion 50 Extension 50 Rotation Left 100 Rotation Right 100 Lateral Flexion Left 75 Lateral Flexion Right 50 Comments pain with R LF w/ L hip; B rot PT-OP-L Special Tests Start: 05/28/24 17:03 Freq: Status: Active Protocol: Document 05/29/24 11:25 NM (Rec: 05/29/24 12:27 NM [id number]) Special Tests Lumbar Spine Special Tests Brandon/quadrant Test Results + Comments hips PT-OP-M Strength Start: 05/28/24 17:03 Freq: Status: Active Protocol: Document 06/30/24 11:30 NM (Rec: 06/30/24 12:23 NM [id number]) Trunk Strength Trunk Manual Muscle Testing Flexion 4- Good- Extension 4- Good- Rotation Left 4 Good Rotation Right 4 Good Lateral Flexion Left 4 Good Lateral Flexion Right 4 Good Comments challenging to maintain balance Hip Strength Hip Manual Muscle Testing Right Flexion (L2) 4+ Good+ Extension (S1) 4+ Good+ Abduction 4+ Good+ Adduction 4+ Good+ External Rotation 4+ Good+ Internal Rotation 4+ Good+ Left Flexion (L2) 4 Good Extension (S1) 4- Good- Abduction 4- Good- Adduction 4- Good- External Rotation 3+ Fair+ Internal Rotation 3+ Fair+ PT-OP-Q Treatments Start: 05/28/24 17:03 Freq: Status: Active Protocol: Document 06/30/24 11:30 NM (Rec: 06/30/24 12:23 NM [id number]) Therapeutic Exercises Supine Exercises figure 4 stretch Supine Exercise Name with max hip flex Side bilateral Reps/Minutes 8 deep breaths Comments cued set up; R only, L reproduce concordant pain SLR Side bilateral Reps/Minutes 10 ea Comments cued form; no inc in pain Sitting Exercises STS Sitting Exercise Name 30 sec STS Side bilateral Equipment Used standard chair Reps/Minutes 16 seated HS stretch Sitting Exercise Name with AP (HEP review) Side bilateral Equipment Used with slight fwd trunk lean Reps/Minutes 60 ea Comments between sets of balance and strength ex Standing Exercises deadlift Side bilateral Equipment Used dowel Reps/Minutes 10 x 2 Comments cued hip hinge, neutral spine Bottom's up Side bilateral Equipment Used 24 step w/ blue disc for ht ( ~6) Reps/Minutes 15 breaths Comments good stretch Manual Therapy Treatment Consent Patient gave verbal consent for manual Yes treatment Soft Tissue Mobilization L hip Body Location hip flexors, glutes, piriformis, distal HS Mobilization Type Rolling,Strumming Intensity/Depth Moderate Body Position sidelying,hooklying Comments Monitored for pain. No tenderness, no symptom reproductino. Trialed for further hip assessment Neuro Re-Education Treatment Balance Activities bungee stepping Surface stable Equipment green cord Reps/Duration 5 ea direction DGI Details PT-OP-T Assessment and Plan Start: 05/28/24 17:03 Freq: Status: Active Protocol: Document 06/30/24 11:30 NM (Rec: 06/30/24 12:23 NM [id number]) Physical Therapy Assessment Goals Four Impairment 30 sec STS = 14, below age- gender norms Specification Writer Goal (LTG) Pt will be able to perform 30 sec STS from standard chair without BUE support for age- gender norm (17) in order to demonstrate increased BLE strength and postural support for improved transfers 06/25/24: 13 from standard chair 06/30/24: 16 STS from standard chair LTG Duration 10 weeks MET Three Impairment DGI 18/24, Prieto 46/56 Short Term Goal (STG) Pt will be educated on at least 3 fall risk strategies to decrease frequency of falls at home 06/30/24: issued handout on flall reduction strategies STG Duration 3 weeks Specification Writer Goal (LTG) Pt will improve DGI score >19 (WFL) in order to demonstrate lower fall risk during dynamic tasks like working on boat 06/30/24: LTG Duration 10 weeks MET Two Impairment trunk and hip weakness leading to decreased balance, transfers Specification Writer Goal (LTG) Pt will improve trunk and L hip strength to at least 4/5 globally in order to demonstrate increased strength for gait, balance, and transfers 06/30/24: 4-/5 for trunk, L hip 3+ to 4- to 4/5 depending on motion tested LTG Duration 10 weeks PROGRESSING One Impairment not performing HEP Specification Writer Goal (LTG) Pt will report compliance with HEP at least 3x/wk in order to maximize progression with PT and promote transition to maintenance program upon discharge LTG Duration 10 weeks Assessment Summary Assessment Pt tolerated session well. L hip pain reproduced with hip flexion in combination with ER , felt on lateral hip and at groin; also reproduced during WB while using bungee. Pt continues to have limitation in B hamstring length. Continued with both lengthening and strengthening hamstrings in lengthened position. Continued with trunk and hip strengthening, balance reactions during bungee stepping. Physical Therapy Plan Frequency and Duration Frequency of Treatment 2x/Week Duration of treatment (weeks) 10 Plan of Care Start Date 05/29/24 Plan of Care End Date 08/07/23 Therapeutic Interventions Therapeutic Interventions Balance Training,Gait Training ,Home Exercise Program,Joint Mobilizations,Manual Therapy, Neuromuscular Re-education, Orthotic/Prosthetic Management ,Patient/Caregiver Education, Self-Care/Home Management, Sensory Integration,Soft Tissue Mobilization,Taping, Therapeutic Activities, Therapeutic Exercises Modalities Cold Pack/Ice Massage,Electric Stimulation,Hot Packs, Ultrasound Other Therapeutic Interventions grade I-II lumbar mobilizations, no traction Next Visit Focus/Plan Next Note Type Treatment Note Next Visit Plan Trial hip mobilizations to L hip. Balance on unstable surface, w/ head motions. Trial leg press. HEP review as needed. stretches for soreness reduction as needed. balance on shuttle balance, obstacles and unstable surfaces POC cont with seated and standing core. Progressive BLE strength and balance training (sherri turns and picking up objects) Promote BLE strength and endurance: leg press, hip abduction, heel raises, toe raises, step ups Improve TS and LS mobility and strength: carries, (Possibly focus on hip hinge )squats, picking up objects Balance sherri dynamic and fall risk reduction
--- NOTE | 2024-07-03 16:08 | PT.OTN ---
Current Diagnoses Other chronic pain (07/03/24) Stiffness of left hip, not elsewhere classified (07/03/24) Low back pain, unspecified (07/03/24) Other abnormalities of gait and mobility (07/03/24) Other lack of coordination (07/03/24) Other symptoms and signs involving the musculoskeletal system (07/03/24) Weakness (07/03/24) Physical Therapy Treatment Note PT-OP-A Visit Information Start: 05/28/24 17:03 Freq: Status: Active Protocol: Document 07/03/24 15:15 TS (Rec: 07/03/24 16:08 TS [id number]) Out-Patient Physical Therapy Visit Information Visit Information Visit Type Progress Note Visit Note KX after 19 visits Visit Start Time 15:20 Visit Stop Time 16:01 Visit Number 9 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 He has had back pain for 15 years, does not recall any specific ROMÁN. 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 He also has L hip pain whihch began 3-4 months ago following a fall. Pt fell when jumping over a small wall; states that he did not follow up with PCP or xrays. Still has intermittent pain but reports no pain with walking. Went to chiropractor following fall which has helped. Has been going to chiropractor for years to help with back. Chiro told pt that RLE is shorter, has wedge in R shoe 1/2 which is causing hip pain and reports that has helped pain. Pt has hx of several falls. He reports that he feels off balance with transfers, being on boat, and turning- states has to catch himself. He has stairs in house (split level), missing rail on last flight going up ( R going up- not a real rail). No dizziness or lightheadedness, just unable to catch self once he starts to fall. Reports difficulty with transfers, strength, balance, donning/doffing L shoe/sock. Has hx of sciatic pain but not currently, last episode was 8 years ago; back is just more achy now especially after performing strenuous activities or twisting such as to work on his boat. Prior Treatments and Tests November 2024 lumbar spine x ray- Impression: multilevel degenerative changes of lumbar spine (mild dextrocurvature, minimal retrolisthesis of L1 on L2, minimal anterolisthesis on L3 on L4, multilevel facet arthropathy worse at L4-5 and L5-S1) Treatment Goals Patient/Caregiver Goals how to improve BLE strength and have fewer falls Current Functional Impairments (Reported) Functional Limitations- Mobility/Gait walks every day w/ do mi- unsteady Functional Limitations- Work/School reading, watching videos Functional Limitations- Recreation/ works on boat, has trouble Hobbies with twisting gym a few weeks every month, has pool membership PT-OP-C Subjective Start: 05/28/24 17:03 Freq: Status: Active Protocol: Document 07/03/24 15:15 TS (Rec: 07/03/24 16:08 TS [id number]) OP-PT Subjective Patient Comments Patient Comments Pt reports pain in L hip today . He is doing his HEP at home. PT-OP-D Balance Start: 05/28/24 17:03 Freq: Status: Active Protocol: Document 05/29/24 11:25 NM (Rec: 05/29/24 12:27 NM [id number]) Balance Tests Prieto Balance Test Prieto Balance Test Score 46/56 mCTSIB mCTSIB Position 1 stable, eyes open 30 sec mCTSIB Position 2 stable, eyes closed 25 sec mCTSIB Position 3 unstable, eyes open 30 sec w/ sway mCTSIB Position 4 unstable, eyes closed 10 sec w / inc sway PT-OP-E Functional Tests Start: 05/28/24 17:03 Freq: Status: Active Protocol: Document 05/29/24 11:25 NM (Rec: 05/29/24 12:27 NM [id number]) Functional Tests 30 Second Sit to Stand Test Score 14 Comments from chair; fatigues; dec control Dynamic Gait Index (DGI) Score 18/24 Five Times Sit to Stand Test Score 9 Comments from chair; poor ecc control PT-OP-F Manual Assessment Start: 05/28/24 17:03 Freq: Status: Active Protocol: Document 05/29/24 11:25 NM (Rec: 05/29/24 12:27 NM [id number]) Manual Assessments Soft Tissue Assessment Soft Tissue Mobility Assessment Tightness of hip ER and hip flexors, hamstrings Joint Mobility Assessment Joint Mobility Assessment Decreased L hip mobility AROM; will continue to assess in future sessions PT-OP-G Mobility & Gait Start: 05/28/24 17:03 Freq: Status: Active Protocol: Document 05/29/24 11:25 NM (Rec: 05/29/24 12:27 NM [id number]) OP Gait Assessment Gait Distance (Feet) 200 Factors Limiting Gait Function Factors Limiting Gait Function Decreased Strength,Poor Balance Comments Gait Comments Increased sway with L turn, decreased trunk stability and wider based gait PT-OP-H Neuro Start: 05/28/24 17:03 Freq: Status: Active Protocol: Document 05/29/24 11:25 NM (Rec: 05/29/24 12:27 NM [id number]) Deep Tendon Reflex & Clonus Assessment Deep Tendon Reflex Right Patellar Deep Tendon Reflex 1+ Diminished Left Patellar Deep Tendon Reflex 2+ Normal PT-OP-J Posture/Palpation/Skin Start: 05/28/24 17:03 Freq: Status: Active Protocol: Document 05/29/24 11:25 NM (Rec: 05/29/24 12:27 NM [id number]) Palpation Assessment Location L hip Palpation Details mild tenderness over L hip posterior to greater trochanter back Palpation Details No tenderness to palpation along midline; increased soft tissue restrictions of paraspinals especially on R side small curve at thoracic and lumbar spines R PT-OP-K Range of Motion Start: 05/28/24 17:03 Freq: Status: Active Protocol: Document 06/30/24 11:30 NM (Rec: 06/30/24 12:23 NM [id number]) Lumbar Spine Range of Motion Lumbar Spine Active Percentage Flexion 50 Extension 50 Rotation Left 100 Rotation Right 100 Lateral Flexion Left 75 Lateral Flexion Right 50 Comments pain with R LF w/ L hip; B rot PT-OP-L Special Tests Start: 05/28/24 17:03 Freq: Status: Active Protocol: Document 05/29/24 11:25 NM (Rec: 05/29/24 12:27 NM [id number]) Special Tests Lumbar Spine Special Tests Brandon/quadrant Test Results + Comments hips PT-OP-M Strength Start: 05/28/24 17:03 Freq: Status: Active Protocol: Document 06/30/24 11:30 NM (Rec: 06/30/24 12:23 NM [id number]) Trunk Strength Trunk Manual Muscle Testing Flexion 4- Good- Extension 4- Good- Rotation Left 4 Good Rotation Right 4 Good Lateral Flexion Left 4 Good Lateral Flexion Right 4 Good Comments challenging to maintain balance Hip Strength Hip Manual Muscle Testing Right Flexion (L2) 4+ Good+ Extension (S1) 4+ Good+ Abduction 4+ Good+ Adduction 4+ Good+ External Rotation 4+ Good+ Internal Rotation 4+ Good+ Left Flexion (L2) 4 Good Extension (S1) 4- Good- Abduction 4- Good- Adduction 4- Good- External Rotation 3+ Fair+ Internal Rotation 3+ Fair+ PT-OP-Q Treatments Start: 05/28/24 17:03 Freq: Status: Active Protocol: Document 07/03/24 15:15 TS (Rec: 07/03/24 16:08 TS [id number]) Gym Equipment Shuttle Recovery unilateral squat Resistance 50# Reps/Time 2x15 each LE bilateral squat Resistance 75 # (3 navy) Reps/Time x15 reps Shuttle Balance red Details normal TALHA and stagger stance, HTs Reps/Duration 6 min Comments visual scanning and head turns with normal TALHA Therapeutic Exercises Supine Exercises SLR Side bilateral Reps/Minutes 10 ea Comments cued for form, not too high Manual Therapy Treatment Joint Mobilizations L hip Grade II Body Position Supine Reps/Duration 3' Neuro Re-Education Treatment Balance Activities bungee stepping Equipment green cord Reps/Duration 5 ea direction tandem stepping Details fwd and retro Reps/Duration 10 feet X 3 fwd X3 retro Comments CGA verbal cues to initiate with hands above bars PT-OP-T Assessment and Plan Start: 05/28/24 17:03 Freq: Status: Active Protocol: Document 07/03/24 15:15 TS (Rec: 07/03/24 16:08 TS [id number]) Physical Therapy Assessment Goals Four Impairment 30 sec STS = 14, below age- gender norms Residential Goal (LTG) Pt will be able to perform 30 sec STS from standard chair without BUE support for age- gender norm (17) in order to demonstrate increased BLE strength and postural support for improved transfers 06/25/24: 13 from standard chair 06/30/24: 16 STS from standard chair LTG Duration 10 weeks MET Three Impairment DGI 18/24, Prieto 46/56 Short Term Goal (STG) Pt will be educated on at least 3 fall risk strategies to decrease frequency of falls at home 06/30/24: issued handout on flall reduction strategies STG Duration 3 weeks Residential Goal (LTG) Pt will improve DGI score >19 (WFL) in order to demonstrate lower fall risk during dynamic tasks like working on boat 06/30/24: LTG Duration 10 weeks MET Two Impairment trunk and hip weakness leading to decreased balance, transfers Ambulatory Analyst Goal (LTG) Pt will improve trunk and L hip strength to at least 4/5 globally in order to demonstrate increased strength for gait, balance, and transfers 06/30/24: 4-/5 for trunk, L hip 3+ to 4- to 4/5 depending on motion tested LTG Duration 10 weeks PROGRESSING One Impairment not performing HEP Ambulatory Analyst Goal (LTG) Pt will report compliance with HEP at least 3x/wk in order to maximize progression with PT and promote transition to maintenance program upon discharge LTG Duration 10 weeks Assessment Summary Assessment Pt reports no discomfort with L hip mobs. Demonstrates increased tolerance to shuttle recovery with increased reps. Balance remains a challenge. He required René-ModA for balance recovery with shuttle balance, HT's challenging. He performed tandem walk fwd/bwd with little rail assist. Physical Therapy Plan Frequency and Duration Frequency of Treatment 2x/Week Duration of treatment (weeks) 10 Plan of Care Start Date 05/29/24 Plan of Care End Date 08/07/23 Next Visit Focus/Plan Next Note Type Treatment Note Next Visit Plan Continue to challenege balance with unstable surfaces, HT's, eyes closed, hamstring strength, picking objects off floor.
--- NOTE | 2024-07-07 12:19 | PT.OTN ---
Current Diagnoses Other chronic pain (07/07/24) Stiffness of left hip, not elsewhere classified (07/07/24) Low back pain, unspecified (07/07/24) Other abnormalities of gait and mobility (07/07/24) Other lack of coordination (07/07/24) Other symptoms and signs involving the musculoskeletal system (07/07/24) Weakness (07/07/24) Physical Therapy Treatment Note PT-OP-A Visit Information Start: 05/28/24 17:03 Freq: Status: Active Protocol: Document 07/07/24 11:34 NM (Rec: 07/07/24 12:19 NM [id number]) Out-Patient Physical Therapy Visit Information Visit Information Visit Type Treatment Note Visit Note KX after 19 visits Visit Start Time 11:34 Visit Stop Time 12:16 Visit Number 10 Evaluation Information Evaluation Date 05/29/24 Precautions Precautions L eye removed, fall risk PT-OP-B Current Condition Start: 05/28/24 17:03 Freq: Status: Active Protocol: Document 05/29/24 11:25 NM (Rec: 05/29/24 12:27 NM [id number]) Current Condition History of Current Condition Current Complaints limited hip mobility, balance, getting History of Current Condition Pt presents with back pain and L hip pain, in addition to gait and balance abnormalities . He has had back pain for 15 years, does not recall any specific ROMÁN. 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 He also has L hip pain whihch began 3-4 months ago following a fall. Pt fell when jumping over a small wall; states that he did not follow up with PCP or xrays. Still has intermittent pain but reports no pain with walking. Went to chiropractor following fall which has helped. Has been going to chiropractor for years to help with back. Chiro told pt that RLE is shorter, has wedge in R shoe 1/2 which is causing hip pain and reports that has helped pain. Pt has hx of several falls. He reports that he feels off balance with transfers, being on boat, and turning- states has to catch himself. He has stairs in house (split level), missing rail on last flight going up ( R going up- not a real rail). No dizziness or lightheadedness, just unable to catch self once he starts to fall. Reports difficulty with transfers, strength, balance, donning/doffing L shoe/sock. Has hx of sciatic pain but not currently, last episode was 8 years ago; back is just more achy now especially after performing strenuous activities or twisting such as to work on his boat. Prior Treatments and Tests November 2024 lumbar spine x ray- Impression: multilevel degenerative changes of lumbar spine (mild dextrocurvature, minimal retrolisthesis of L1 on L2, minimal anterolisthesis on L3 on L4, multilevel facet arthropathy worse at L4-5 and L5-S1) Treatment Goals Patient/Caregiver Goals how to improve BLE strength and have fewer falls Current Functional Impairments (Reported) Functional Limitations- Mobility/Gait walks every day w/ do mi- unsteady Functional Limitations- Work/School reading, watching videos Functional Limitations- Recreation/ works on boat, has trouble Hobbies with twisting gym a few weeks every month, has pool membership PT-OP-C Subjective Start: 05/28/24 17:03 Freq: Status: Active Protocol: Document 07/07/24 11:34 NM (Rec: 07/07/24 12:19 NM [id number]) OP-PT Subjective Patient Comments Patient Comments Pt reports feels stronger but states that he feels like he is unsure if his balance is improving. Declines are most challenging. He reports hip pain is minimal but does not resolve with rest. Some of HEP stretching hurts his L hip a little. PT-OP-D Balance Start: 05/28/24 17:03 Freq: Status: Active Protocol: Document 05/29/24 11:25 NM (Rec: 05/29/24 12:27 NM [id number]) Balance Tests Prieto Balance Test Prieto Balance Test Score 46/56 mCTSIB mCTSIB Position 1 stable, eyes open 30 sec mCTSIB Position 2 stable, eyes closed 25 sec mCTSIB Position 3 unstable, eyes open 30 sec w/ sway mCTSIB Position 4 unstable, eyes closed 10 sec w / inc sway PT-OP-E Functional Tests Start: 05/28/24 17:03 Freq: Status: Active Protocol: Document 05/29/24 11:25 NM (Rec: 05/29/24 12:27 NM [id number]) Functional Tests 30 Second Sit to Stand Test Score 14 Comments from chair; fatigues; dec control Dynamic Gait Index (DGI) Score 18 Five Times Sit to Stand Test Score 9 Comments from chair; poor ecc control PT-OP-F Manual Assessment Start: 05/28/24 17:03 Freq: Status: Active Protocol: Document 05/29/24 11:25 NM (Rec: 05/29/24 12:27 NM [id number]) Manual Assessments Soft Tissue Assessment Soft Tissue Mobility Assessment Tightness of hip ER and hip flexors, hamstrings Joint Mobility Assessment Joint Mobility Assessment Decreased L hip mobility AROM; will continue to assess in future sessions PT-OP-G Mobility & Gait Start: 05/28/24 17:03 Freq: Status: Active Protocol: Document 05/29/24 11:25 NM (Rec: 05/29/24 12:27 NM [id number]) OP Gait Assessment Gait Distance (Feet) 200 Factors Limiting Gait Function Factors Limiting Gait Function Decreased Strength,Poor Balance Comments Gait Comments Increased sway with L turn, decreased trunk stability and wider based gait PT-OP-H Neuro Start: 05/28/24 17:03 Freq: Status: Active Protocol: Document 05/29/24 11:25 NM (Rec: 05/29/24 12:27 NM [id number]) Deep Tendon Reflex & Clonus Assessment Deep Tendon Reflex Right Patellar Deep Tendon Reflex 1+ Diminished Left Patellar Deep Tendon Reflex 2+ Normal PT-OP-J Posture/Palpation/Skin Start: 05/28/24 17:03 Freq: Status: Active Protocol: Document 05/29/24 11:25 NM (Rec: 05/29/24 12:27 NM [id number]) Palpation Assessment Location L hip Palpation Details mild tenderness over L hip posterior to greater trochanter back Palpation Details No tenderness to palpation along midline; increased soft tissue restrictions of paraspinals especially on R side small curve at thoracic and lumbar spines R PT-OP-K Range of Motion Start: 05/28/24 17:03 Freq: Status: Active Protocol: Document 06/30/24 11:30 NM (Rec: 06/30/24 12:23 NM [id number]) Lumbar Spine Range of Motion Lumbar Spine Active Percentage Flexion 50 Extension 50 Rotation Left 100 Rotation Right 100 Lateral Flexion Left 75 Lateral Flexion Right 50 Comments pain with R LF w/ L hip; B rot PT-OP-L Special Tests Start: 05/28/24 17:03 Freq: Status: Active Protocol: Document 05/29/24 11:25 NM (Rec: 05/29/24 12:27 NM [id number]) Special Tests Lumbar Spine Special Tests Brandon/quadrant Test Results + Comments hips PT-OP-M Strength Start: 05/28/24 17:03 Freq: Status: Active Protocol: Document 06/30/24 11:30 NM (Rec: 06/30/24 12:23 NM [id number]) Trunk Strength Trunk Manual Muscle Testing Flexion 4- Good- Extension 4- Good- Rotation Left 4 Good Rotation Right 4 Good Lateral Flexion Left 4 Good Lateral Flexion Right 4 Good Comments challenging to maintain balance Hip Strength Hip Manual Muscle Testing Right Flexion (L2) 4+ Good+ Extension (S1) 4+ Good+ Abduction 4+ Good+ Adduction 4+ Good+ External Rotation 4+ Good+ Internal Rotation 4+ Good+ Left Flexion (L2) 4 Good Extension (S1) 4- Good- Abduction 4- Good- Adduction 4- Good- External Rotation 3+ Fair+ Internal Rotation 3+ Fair+ PT-OP-Q Treatments Start: 05/28/24 17:03 Freq: Status: Active Protocol: Document 07/07/24 11:34 NM (Rec: 07/07/24 12:19 NM [id number]) Therapeutic Exercises Standing Exercises glute med isometric Side bilateral Equipment Used pushing thigh into wall Reps/Minutes 30 ea Comments cued set up ankle dorsiflexion Side bilateral Equipment Used back against wall Reps/Minutes 2x15 heel raises Standing Exercise Name 1. gastrocnemius, 2. soleus Side bilateral Equipment Used B hand support on wall for balance Reps/Minutes 2x15 ea Comments prn cues for control deadlift Side bilateral Equipment Used dowel w/ 5# Reps/Minutes 2x10 Comments cued hip hinge, neutral spine step ups Standing Exercise Name HEP review: fwd & lateral Side bilateral Equipment Used 8, no hand support Reps/Minutes 15 each LE each direction Comments cued execution, midline trunk align Neuro Re-Education Treatment Balance Activities incline ambulation Details CGA Reps/Duration 2 min ea Comments 1. fwd, 1.8 speed, 6 incline 2. retro, 0.8 speed, 6 incline -prn hand support unstable surface Details CGA Reps/Duration 4 sets ea Comments 1. ramp on mat 2. mat with various obstacles underneath 3. see above w/ dual task to count bwd from 100's, listing codes Improved with reps. Cueing needed to maintain postural control especially with core/ glute activation vs relying on use of extremities shuttle balance Details red Surface unstable Reps/Duration 6 min Comments 1. A/P (a) stance (b) head turns- cueing to shift eyes first then turn head for gaze stabilization >> challenging for pt to maintain steadiness 2. M/L (a) stance (b) w/ head turns- cueing to shift eyes first then turn head for gaze stabilization Min A to steady. prn hand support. cueing for weight shifting, abdominal bracing PT-OP-T Assessment and Plan Start: 05/28/24 17:03 Freq: Status: Active Protocol: Document 07/07/24 11:34 NM (Rec: 07/07/24 12:19 NM [id number]) Physical Therapy Assessment Assessment Summary Assessment Pt continues to be reliant on his vision to assist with providing steadiness on unstable surface. Min A still needed on shuttle recovery, especially with addition of head turns. Cueing needed for visual stabilization. Initiated incline and decline ambulation on treadmill to address maintaining balance on inclines/declines. Initiated ankle strengthening at wall, cueing for correct execution and control. PT and pt discussed discharge at next session; both in agreement. Physical Therapy Plan Next Visit Focus/Plan Next Note Type Discharge Summary Next Visit Plan maintenance program cont with balance progressions especially on unstable surfaces
--- NOTE | 2024-07-10 15:32 | PT.OTN ---
Current Diagnoses Other chronic pain (07/10/24) Stiffness of left hip, not elsewhere classified (07/10/24) Low back pain, unspecified (07/10/24) Other abnormalities of gait and mobility (07/10/24) Other lack of coordination (07/10/24) Other symptoms and signs involving the musculoskeletal system (07/10/24) Weakness (07/10/24) Physical Therapy Treatment Note PT-OP-A Visit Information Start: 05/28/24 17:03 Freq: Status: Active Protocol: Document 07/10/24 10:42 NM (Rec: 07/10/24 11:32 NM [id number]) Out-Patient Physical Therapy Visit Information Visit Information Visit Type Discharge Summary Visit Note KX after 19 visits Visit Start Time 10:45 Visit Stop Time 11:30 Visit Number 11 Evaluation Information Evaluation Date 05/29/24 Precautions Precautions L eye removed, fall risk PT-OP-B Current Condition Start: 05/28/24 17:03 Freq: Status: Active Protocol: Document 05/29/24 11:25 NM (Rec: 05/29/24 12:27 NM [id number]) Current Condition History of Current Condition Current Complaints limited hip mobility, balance, getting History of Current Condition Pt presents with back pain and L hip pain, in addition to gait and balance abnormalities . He has had back pain for 15 years, does not recall any specific ROMÁN. 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 He also has L hip pain whihch began 3-4 months ago following a fall. Pt fell when jumping over a small wall; states that he did not follow up with PCP or xrays. Still has intermittent pain but reports no pain with walking. Went to chiropractor following fall which has helped. Has been going to chiropractor for years to help with back. Chiro told pt that RLE is shorter, has wedge in R shoe 1/2 which is causing hip pain and reports that has helped pain. Pt has hx of several falls. He reports that he feels off balance with transfers, being on boat, and turning- states has to catch himself. He has stairs in house (split level), missing rail on last flight going up ( R going up- not a real rail). No dizziness or lightheadedness, just unable to catch self once he starts to fall. Reports difficulty with transfers, strength, balance, donning/doffing L shoe/sock. Has hx of sciatic pain but not currently, last episode was 8 years ago; back is just more achy now especially after performing strenuous activities or twisting such as to work on his boat. Prior Treatments and Tests November 2024 lumbar spine x ray- Impression: multilevel degenerative changes of lumbar spine (mild dextrocurvature, minimal retrolisthesis of L1 on L2, minimal anterolisthesis on L3 on L4, multilevel facet arthropathy worse at L4-5 and L5-S1) Treatment Goals Patient/Caregiver Goals how to improve BLE strength and have fewer falls Current Functional Impairments (Reported) Functional Limitations- Mobility/Gait walks every day w/ do mi- unsteady Functional Limitations- Work/School reading, watching videos Functional Limitations- Recreation/ works on boat, has trouble Hobbies with twisting gym a few weeks every month, has pool membership PT-OP-C Subjective Start: 05/28/24 17:03 Freq: Status: Active Protocol: Document 07/10/24 10:42 NM (Rec: 07/10/24 11:32 NM [id number]) OP-PT Subjective Patient Comments Patient Comments Pt reports that he worked on the boat yesterday, states that his back is sore. Pt presents with a bandaid on his head. He states that he turned to put his jacket on the coat but then when he turned and fell down several stairs. He did not get checked out. reports that he has scapes on his R knee, R forehead. He denies headaches, changes in consciousness, or any other symptoms. present during session. PT-OP-D Balance Start: 05/28/24 17:03 Freq: Status: Active Protocol: Document 05/29/24 11:25 NM (Rec: 05/29/24 12:27 NM [id number]) Balance Tests Prieto Balance Test Prieto Balance Test Score 46/56 mCTSIB mCTSIB Position 1 stable, eyes open 30 sec mCTSIB Position 2 stable, eyes closed 25 sec mCTSIB Position 3 unstable, eyes open 30 sec w/ sway mCTSIB Position 4 unstable, eyes closed 10 sec w / inc sway PT-OP-E Functional Tests Start: 05/28/24 17:03 Freq: Status: Active Protocol: Document 05/29/24 11:25 NM (Rec: 05/29/24 12:27 NM [id number]) Functional Tests 30 Second Sit to Stand Test Score 14 Comments from chair; fatigues; dec control Dynamic Gait Index (DGI) Score 18 Five Times Sit to Stand Test Score 9 Comments from chair; poor ecc control PT-OP-F Manual Assessment Start: 05/28/24 17:03 Freq: Status: Active Protocol: Document 05/29/24 11:25 NM (Rec: 05/29/24 12:27 NM [id number]) Manual Assessments Soft Tissue Assessment Soft Tissue Mobility Assessment Tightness of hip ER and hip flexors, hamstrings Joint Mobility Assessment Joint Mobility Assessment Decreased L hip mobility AROM; will continue to assess in future sessions PT-OP-G Mobility & Gait Start: 05/28/24 17:03 Freq: Status: Active Protocol: Document 05/29/24 11:25 NM (Rec: 05/29/24 12:27 NM [id number]) OP Gait Assessment Gait Distance (Feet) 200 Factors Limiting Gait Function Factors Limiting Gait Function Decreased Strength,Poor Balance Comments Gait Comments Increased sway with L turn, decreased trunk stability and wider based gait PT-OP-H Neuro Start: 05/28/24 17:03 Freq: Status: Active Protocol: Document 05/29/24 11:25 NM (Rec: 05/29/24 12:27 NM [id number]) Deep Tendon Reflex & Clonus Assessment Deep Tendon Reflex Right Patellar Deep Tendon Reflex 1+ Diminished Left Patellar Deep Tendon Reflex 2+ Normal PT-OP-J Posture/Palpation/Skin Start: 05/28/24 17:03 Freq: Status: Active Protocol: Document 05/29/24 11:25 NM (Rec: 05/29/24 12:27 NM [id number]) Palpation Assessment Location L hip Palpation Details mild tenderness over L hip posterior to greater trochanter back Palpation Details No tenderness to palpation along midline; increased soft tissue restrictions of paraspinals especially on R side small curve at thoracic and lumbar spines R PT-OP-K Range of Motion Start: 05/28/24 17:03 Freq: Status: Active Protocol: Document 06/30/24 11:30 NM (Rec: 06/30/24 12:23 NM [id number]) Lumbar Spine Range of Motion Lumbar Spine Active Percentage Flexion 50 Extension 50 Rotation Left 100 Rotation Right 100 Lateral Flexion Left 75 Lateral Flexion Right 50 Comments pain with R LF w/ L hip; B rot PT-OP-L Special Tests Start: 05/28/24 17:03 Freq: Status: Active Protocol: Document 05/29/24 11:25 NM (Rec: 05/29/24 12:27 NM [id number]) Special Tests Lumbar Spine Special Tests Brandon/quadrant Test Results + Comments hips PT-OP-M Strength Start: 05/28/24 17:03 Freq: Status: Active Protocol: Document 07/10/24 10:42 NM (Rec: 07/10/24 12:59 NM [id number]) Hip Strength Hip Manual Muscle Testing Right Flexion (L2) 4+ Good+ Extension (S1) 4+ Good+ Abduction 4+ Good+ Adduction 4+ Good+ External Rotation 4+ Good+ Internal Rotation 4+ Good+ Left Flexion (L2) 4+ Good+ Extension (S1) 4+ Good+ Abduction 4+ Good+ Adduction 4+ Good+ External Rotation 4+ Good+ Internal Rotation 4+ Good+ PT-OP-Q Treatments Start: 05/28/24 17:03 Freq: Status: Active Protocol: Document 07/10/24 10:42 NM (Rec: 07/10/24 11:32 NM [id number]) Therapeutic Exercises Sitting Exercises ankle inversion/eversion Side bilateral Resistance level 1 band Reps/Minutes 20 ea Comments cued set up; assisting with carryover STS Side bilateral Resistance level 4 band Equipment Used standard chair Reps/Minutes 2x15 Comments 2nd set with 5# Standing Exercises ankle dorsiflexion Side bilateral Equipment Used back against wall Reps/Minutes 2x20 heel raises Standing Exercise Name gastrocnemius Side bilateral Equipment Used B hand support on wall for balance Reps/Minutes 2x20 Comments prn cues for control side stepping with band Standing Exercise Name 1. lateral stepping, 2. forward stepping, 3. retro stepping Side bilateral Resistance level 4 band above knees Equipment Used prn hand support for balance on ther ail Reps/Minutes 2x20 ft Comments pain free Neuro Re-Education Treatment Balance Activities SLS Surface prn hand support Reps/Duration 6 x 10 hold ea leg Comments demos instability ankle NBOS Details tandem Surface prn hand support Reps/Duration 2x30 ea Self-Care/Home Management Treatment Education Other Education Education to pt and pt's on monitoring for symptoms and awareness of further symptoms onset (e.g. headache, vision changes, changes in consciousness). Recommended follow up prior to scheduled vacation at urgent care/ED, especially if symptoms develop or if another fall occurs PT-OP-T Assessment and Plan Start: 05/28/24 17:03 Freq: Status: Active Protocol: Document 07/10/24 10:42 NM (Rec: 07/10/24 11:32 NM [id number]) Physical Therapy Assessment Goals Four Impairment 30 sec STS = 16, below age- gender norms College Coach Goal (LTG) Pt will be able to perform 30 sec STS from standard chair without BUE support for age- gender norm (17) in order to demonstrate increased BLE strength and postural support for improved transfers 06/25/24: 13 from standard chair 06/30/24: 16 STS from standard chair LTG Duration 10 weeks MET Three Impairment DGI , Prieto 46/56 Short Term Goal (STG) Pt will be educated on at least 3 fall risk strategies to decrease frequency of falls at home 06/30/24: issued handout on flall reduction strategies STG Duration 3 weeks Correction Goal (LTG) Pt will improve DGI score > (WFL) in order to demonstrate lower fall risk during dynamic tasks like working on boat 06/30/24: LTG Duration 10 weeks MET Two Impairment trunk and hip weakness leading to decreased balance, transfers College Coach Goal (LTG) Pt will improve trunk and L hip strength to at least 4/5 globally in order to demonstrate increased strength for gait, balance, and transfers 06/30/24: 4-/5 for trunk, L hip 3+ to 4- to 4/5 depending on motion tested 07/10/24: 4+/5 for all LTG Duration 10 weeks MET One Impairment not performing HEP Correction Goal (LTG) Pt will report compliance with HEP at least 3x/wk in order to maximize progression with PT and promote transition to maintenance program upon discharge 07/10/24: pt reports compliant with HEP daily LTG Duration 10 weeks MET Assessment Summary Assessment Pt tolerated session well. No hip or knee pain. present to improve carryover with execution but pt compliant with HEP. Initiated ankle strengthening to promote more stable base with stance and on boat. Cueing needed for set up with ankle inversion/ eversion. Able to progress to holding small weight during STS with band, in addition to resisted multi-directional stepping. Educated on following up with urgent care/ ED following fall or at minimum PCP to address hitting head following fall, in addition to symptom monitoring . Physical Therapy Plan Frequency and Duration Frequency of Treatment 2x/Week Duration of treatment (weeks) 10 Plan of Care Start Date 05/29/24 Plan of Care End Date 08/07/23 Therapeutic Interventions Therapeutic Interventions Balance Training,Gait Training ,Home Exercise Program,Joint Mobilizations,Manual Therapy, Neuromuscular Re-education, Orthotic/Prosthetic Management ,Patient/Caregiver Education, Self-Care/Home Management, Sensory Integration,Soft Tissue Mobilization,Taping, Therapeutic Activities, Therapeutic Exercises Modalities Cold Pack/Ice Massage,Electric Stimulation,Hot Packs, Ultrasound Other Therapeutic Interventions grade I-II lumbar mobilizations, no traction Discharge Physical Therapy Discharge Reasons Goals Met Discharge Comments All goals met. Pt will be going out of town and is unable to complete plan of care despite recommendation for further skilled PT to address balance. Pt is compliant with HEP. PT and pt discussed discharge today and PT issued maintenance program. Recommended that pt follow up with ortho specialist to further evaluate hip and for further skilled PT with new referral for vestibular PT evaluation. Next Visit Focus/Plan Next Note Type Discharge Summary Next Visit Plan discharge from PT
== END 2024-07-17 09:33 | disposition home or self-care (01) ==
LOC: PHYS 10:45
PROVIDERS: Family Provider Family Medicine; PCP Family Medicine; Referring Provider Family Medicine; Visit Provider Family Medicine
DX: R26.89 Other abnormalities of gait and mobility (principal); R29.898 Other symptoms and signs involving the musculoskeletal system; M54.50 Low back pain, unspecified; G89.29 Other chronic pain; R53.1 Weakness; R27.8 Other lack of coordination; M25.652 Stiffness of left hip, not elsewhere classified
CPT/HCPCS: 97110; 97112; 97140; 97161; 97530

== ENCOUNTER → 2024-08-06 10:35 | Outpatient (CLI) | payer MEDICARE, SELFPAY ==
--- NOTE | 2024-08-06 16:00 | ST.SWALLOW ---
Visit Care Team Role Provider Type Sunday Garcia MD Family Provider Physician Primary Care Provider Specialty: Family Practice Address: [address] [place] [address], [facility] [place], [address] Email: [email or web address] Yunier Eden MD Attending Provider Physician Referring Provider Specialty: Ear, Nose, Throat Address: [address] [place] [address], [id number] Email: [email or web address] Modified Barium Swallow Study FIELD TRAINER Modified Barium Swallow Study Start: 08/06/24 09:49 Freq: Status: Active Protocol: Document 08/06/24 14:23 LNK (Rec: 08/06/24 16:00 [id number]) Modified Barium Swallow Study Total Time Visit Start Time 10:00 Visit Stop Time 10:30 Total Visit Minutes [address] Eden, ENT; PCP - Dr. Garcia Reason for Referral dysphagia Setting Setting Outpatient Care Patient Information Identification Type Name,Date of Patient History Pt was seen for a Modified Barium Swallow Study secondary to c/o increased difficulty swallowing and daily coughing/ choking. Pt reported regurgitation of undigested foods at night if he eats too much or eats late in the day/ evening.Pt has a PMH that included GERD and esophageal narrowing. Pt has a PMH of GERD and takes Prilosec. Pt had EGD in 2018 that demonstrated 2 dilated Shatzki's rings, gastritis, and hiatal hernia. Subjective Observations Pt was seated in the fluoroscopy chair with directions and procedures described for him. He indicated he understood and agreed to proceed. Patient Positioning Position View Lat-A/P Imaging Lateral View Textures Administered Trials Presented Thin Liquid via Spoon (IDDSI 0 ),Thin Liquid via Cup (IDDSI 0 ),Extremely Thick Liquid via Spoon (IDDSI 4),Regular (IDDSI 7) Barium Tablet Yes The IDDSI Framework Protocol: IDDSI.1 Oral Impairment Source: The Modified Barium Swallow Impairment Profile (MBSImP??) Lip Closure No labial escape Tongue Control During Bolus Hold Cohesive bolus between tongue to palatal seal Bolus Preparation/Mastication Timely & efficient chewing & mashing Bolus Transport/Lingual Motion Brisk tongue motion Oral Residue Trace residue lining oral structures Location Tongue Initiation of Pharyngeal Swallow Bolus head in valleculae Additional Oral Impairment Observations *OME and DKS were observed to be WNL. *Dentition natural and in good hygiene *Mastication observed with rotary chew pattern. *Good bolus formation, control and AP transition. Pharyngeal Impairment Source: The Modified Barium Swallow Impairment Profile (MBSImP??) Soft Palate Elevation No bolus between soft palate & pharyngeal wall Laryngeal Elevation Comp.sup.move.thyroid cart.w/ comp.approx.arytenoids to epiglot petiole Anterior Hyoid Excursion Partial anterior movement Epiglottic Movement Partial inversion Laryngeal Vestibular Closure Complete; no air/contrast in laryngeal vestibule Pharyngeal Stripping Wave Present - complete Pharyngoesophageal Segment Opening Complete distention & complete duration; no obstruction of flow Tongue Base Retraction Narrow column of contrast/air betwn tongue base & post. pharyngeal wall Pharyngeal Residue Collection of residue within/ on pharyngeal structures Location Diffuse (>3 areas) Additional Pharyngeal Impairment *Reduced tongue base Observations retraction and hyolaryngeal elevation and movement. *Epiglottic inversion incomplete with tip of epiglottis located against posterior pharyngeal wall and epiglottal body in horizontal position This increases the risk of pharyngeal pooling and penetration of these secretions into the laryngeal vestibule resulting in reflexive cough *Pharyngeal residue observed post swallow *No laryngeal penetration observed during MBSS today *No tracheal aspiration observed A/P View Textures Administered Trials Presented Thin Liquid via Spoon (IDDSI 0 ) The IDDSI Framework Protocol: IDDSI.1 A/P View Observations Esophageal Clearance Upright Position Esophageal retention Vocal Fold Function Good Esophageal Function Slowed Clearing Additional A-P Observations *Thin bariuim and calibrated tablet trials in AP position *Esophageal retention noted after trials in lateral position *Enlarged esophagus at mid chest observed to hiatal hernia. *Calibrated tablet cleared that esophagus in a timely manner Clinical Impressions Dysphagia Type Pharyngeal Esophageal Findings *Mild to moderate pharyngoesophageal dysphagia characterized by reduced pharyngeal muscles and esophageal retention *Enlarged esophagus at mid chest interiorly to hiatal hernia. *Recommend ST/swallow therapy targeting base of tongue strength, GERD precautions and safe swallow strategies to reduce aspiration risk *Recommend GI consult Rehabilitation Potential Good Patient Appropriate for Therapy Yes Recommendations Diet Medication Recommendation As Tolerated,Whole in Carrier Comments No diet change recommended at this time Aspiration Precautions Recommended Precautions Upright at 90 Degrees,Small Bites/Sips Treatment Plan Therapy Recommendations Outpatient Speech Therapy Recommended Referrals GI Consult Therapy Strategy Recommendations Sitting Upright (90 deg) Additional Strategies Recommended Remain upright after meats to for gravity assist in esoph. clearance
== END ==
PROVIDERS: Family Provider Family Medicine; PCP Family Medicine; Referring Provider Otolaryngology; Visit Provider Otolaryngology
DX: R13.13 Dysphagia, pharyngeal phase (principal)
CPT/HCPCS: 74230; 92611